=== PATIENT | female | born 1950 | race Caucasian/White ===

== ENCOUNTER → 2022-11-02 13:22 | Outpatient (CLI) | payer MEDICARE, MEDICAID, SELFPAY ==
--- NOTE | 2022-11-02 | DI.MRI.S_ITS ---
PROCEDURE: MR HEAD/BRAIN WO CON INDICATIONS: HEAD TRAUMA/HEADACHE TECHNIQUE: Non-contrast axial T1 spin echo, axial T2 fast spin echo, sagittal and axial FLAIR, coronal T2 fast spin echo, axial gradient echo, axial diffusion and ADC through the brain. COMPARISON: None. FINDINGS: Image quality: Excellent. CSF spaces: Ventricles appear symmetric in size and shape. Basal cisterns are patent. No extra-axial fluid collections. Brain: No intracranial bleeds or mass effects. There is cerebral volume loss for age. There are ltgp-hq-rvlzqdbb, age-appropriate periventricular and deep white matter chronic small vessel ischemic changes. Brainstem appears normal. Diffusion-weighted images show no acute ischemic insults. No chronic ischemic insults. Normal intravascular flow voids are present. Skull and face: Calvarial bone marrow is normal in signal. Orbits are normal. Sinuses: Sinuses and mastoids are clear. IMPRESSION: 1. Age-appropriate volume loss and nozt-pj-kadhrrbt age-appropriate small-vessel ischemic change. 2. No evidence acute intracranial process. Dictated by: Jason Holley M.D. on 11/02/2022 at 13:56 Approved by: Jason Holley M.D. on 11/02/2022 at 13:58
== END ==
PROVIDERS: PCP Internal Medicine; Referring Provider Psychiatry & Neurology Neurology; Visit Provider Psychiatry & Neurology Neurology
DX: G44.329 Chronic post-traumatic headache, not intractable (principal); F07.81 Postconcussional syndrome; G47.00 Insomnia, unspecified
CPT/HCPCS: 70551

== ENCOUNTER → 2022-12-14 08:02 | Outpatient (CLI) | payer MEDICARE, MEDICAID, SELFPAY ==
--- NOTE | 2022-12-14 | DI.ECHO.S_ITS ---
[place] [facility]---------+ [facility] +---------+ : : [address] : : : : [id number] : : : : Phone: [phone]+ Echocardiogram Report + + :Name: JAMAR SMITH Study Date: 12/14/2022 Height: 61 in : :[facility] ReadingLocation: Weight: 125 lb : : Gender: Female BSA: 1.5 m2 : :: 1950 Age: 71 yrs BP: 136/75 mmHg: :Reason For Study: SHORTNESS OF BREATH : :Ordering Physician: NAGA, : :REJI Performed By: Laila Hancock : :Referring: REJI LUGO : + + Interpretation Summary 1) Normal left ventricular thickness, size, wall motion, and systolic function (EF 60-65%). 2) Normal right ventricular size and function. 3) No significant valvular abnormalities. 4) No prior Echo available for comparison. Procedure: A two-dimensional transthoracic echocardiogram with color flow and Doppler was performed. The study quality was technically adequate. There is no prior echocardiogram noted for this patient. The patient was in sinus bradycardia with heart rates between 55-63 bpm during the exam. Left Ventricle: The left ventricle is normal in size and wall thickness. The ejection fraction is estimated to be 60-65%. Left ventricular systolic function appears normal without focal wall motion abnormalities. Diastolic parameters suggest a relaxation abnormality of the left ventricle, consistent with probable normal filling pressures. Right Ventricle: The right ventricle is normal in size and function. Atria: The left atrial size is normal. Right atrial size is normal. There is no Doppler evidence for an interatrial shunt. Mitral Valve: The mitral valve is normal in structure and function. There is mild mitral regurgitation. Aortic Valve: The aortic valve is trileaflet. The aortic valve opens well. There is no aortic valve stenosis. No aortic regurgitation is present. Tricuspid Valve: The tricuspid valve is normal in structure and function. There is trace tricuspid regurgitation. Pulmonary artery pressures cannot be estimated because of the lack of a measurable TR jet velocity. Pulmonic Valve: The pulmonic valve leaflets are thin and pliable; valve motion is normal. There is no pulmonic valvular regurgitation. Great Vessels: The aortic root is normal size. The dimensions of the ascending aorta are normal. The IVC is of normal diameter and collapses greater than 50% with a sniff. This suggests a low right atrial pressure of 3 mm Hg. Pericardium/ Pleura There is no pericardial effusion. There is no pleural effusion. MMode/2D Measurements & Calculations LVIDd: 3.8 cm LVOT diam: 1.9 cm LVIDs: 2.5 cm Ao root diam: 2.6 cm FS: 35.5 % asc Aorta Diam: 3.4 cm IVSd: 0.76 cm Ao Arch Diam (Prox Trans): 2.5 cm LVPWd: 0.79 cm LV hinojosa. diameter/BSA (cm/m^2): 2.5 LV sys. diameter/BSA (cm/m^2): 1.6 LA A2 area: 13.7 cm2 RA long axis: 4.3 cm LA A4 area: 13.1 cm2 RA area: 11.1 cm2 LA length (vol): 4.3 cm RA vol: 24.5 ml LA vol: 35.8 ml RA : 15.9 ml/m2 LA vol index: 23.1 ml/m2 IVC diam: 0.75 cm RVD1 (basal): 2.9 cm RVD2 (mid): 2.2 cm TAPSE: 2.3 cm Doppler Measurements & Calculations Ao V2 max: 126.6 cm/sec LVOT Max Nicholas: 103.4 cm/sec Ao V2 mean: 96.3 cm/sec LV V1 max P.3 mmHg Ao max P.4 mmHg LV V1 VTI: 23.3 cm Ao mean P.0 mmHg SHAHZAD(I,D): 2.3 cm2 Ao V2 VTI: 29.3 cm SHAHZAD(V,D): 2.4 cm2 sev ratio: 0.80 SHAHZAD indexed to BSA (cm^2/m^2): 1.5 MV E max nicholas: 60.3 cm/sec PA V2 max: 71.5 cm/sec MV A max nicholas: 63.4 cm/sec PA V2 mean: 51.0 cm/sec MV E/A: 0.95 PA mean P.1 mmHg Med Peak E' Nicholas: 4.6 cm/sec PA pr(Accel): 31.0 mmHg E/E' med: 13.1 Lat Peak E' Nicholas: 6.4 cm/sec E/E' lat: 9.4 E/e' average: 11.2 MV dec time: 0.25 sec SV(LVOT): 68.3 ml Reading Physician:04:46 PM
== END ==
PROVIDERS: PCP Internal Medicine; Referring Provider Internal Medicine Cardiovascular Disease; Visit Provider Internal Medicine Cardiovascular Disease
DX: R06.02 Shortness of breath (principal)
CPT/HCPCS: 93306

== ENCOUNTER → 2023-02-20 15:25 | Outpatient (CLI) | payer MEDICARE, MEDICAID, SELFPAY ==
--- NOTE | 2023-02-20 | DI.US.S_ITS ---
PROCEDURE: US PELVIC COMPLETE INDICATIONS: POSTMENOPAUSAL BLEEDING TECHNIQUE: Real-time scanning was performed of the pelvic organs, with image documentation. Additional endovaginal scanning was necessary due to incomplete visualization of the adnexal and endometrial structures by transabdominal scanning. COMPARISON: None. FINDINGS: Uterus: Uterus is anteverted and normal in size at 7.0 x 3.6 x 2.0 cm. The myometrium is heterogeneous. The endometrium measures 1.5 mm combined thickness. Of the level of the cervix is a hypoechoic mass measuring 6 x 4 x 3 mm without vascularity. Hypoechoic mass within the posterior uterine body measuring 7 x 7 x 5 mm, favored to represent a fibroid. Hypoechoic mass within the anterior right uterine fundus measuring 1.2 x 0.9 x 0.6 cm with vascularity. Ovaries: The ovaries are not seen. Other: No pathologic free abdominal or pelvic fluid. IMPRESSION: 1. Hypoechoic mass within the region of the cervix/lower uterine segment measuring 6 mm. Consider gynecologic exam for further evaluation. 2. Hypoechoic masses within the uterus, 1 of which demonstrates increased vascularity. These may represent fibroids. Recommend gynecology consult and follow-up ultrasound to assess stability. 3. The ovaries are not seen. We strive to produce accurate, complete, and clear reports of imaging services. To assist us in improving patient care, this report was composed using standard report templates and voice recognition software. Therefore, it may contain abnormal punctuation, insertions and/or omissions. Occasional wrong-word or sound-alike substitutions may occur. Though we review the report and make efforts to correct it, we do recommend that the report be read carefully in proper context to recognize any text inaccuracies. Dictated by: Jose Armando Holder M.D. on 02/20/2023 at 16:26 Approved by: Jose Armando Holder M.D. on 02/20/2023 at 16:32
== END ==
PROVIDERS: PCP Internal Medicine; Referring Provider Internal Medicine; Visit Provider Internal Medicine
DX: N95.0 Postmenopausal bleeding; N88.9 Noninflammatory disorder of cervix uteri, unspecified; N85.9 Noninflammatory disorder of uterus, unspecified
CPT/HCPCS: 76830; 76856

== ENCOUNTER → 2023-04-02 11:28 | Outpatient (CLI) | payer MEDICARE, MEDICAID, SELFPAY ==
--- NOTE | 2023-04-02 11:40 | DI.CT.S_ITS ---
PROCEDURE: CT ABDOMEN W CON INDICATIONS: Abdominal pain, primarily epigastric TECHNIQUE: After the administration of intravenous contrast, axial sections were acquired from the lung bases to the pubic symphysis. Coronal and sagittal reformats were performed. For radiation dose reduction, the following was used: automated exposure control, adjustment of mA and/or kV according to patient size. COMPARISON:None. FINDINGS: Lower thorax: The lung bases are clear. Heart size normal. Small hiatal hernia noted. Liver: The liver is diffusely decreased in attenuation without focal mass lesion. Biliary system: No calcified cholelithiasis or pericholecystic inflammation. No intra or extrahepatic bile duct dilatation. Pancreas: Unremarkable without mass or inflammation evident. Spleen: Normal in size and density. Adrenals: Normal morphology and density. Urinary system: Normal renal size and attenuation. No renal calculi, hydronephrosis, or solid mass present. Gastrointestinal system: The bowel is unremarkable without evidence of bowel obstruction or inflammation. The stomach appears unremarkable. Peritoneal spaces: No mesenteric or retroperitoneal adenopathy. No free air. No free fluid. Abdominal wall: Abdominal wall intact without evidence of ventral or inguinal hernias. Musculoskeletal: Normal bone mineralization. No acute fractures. IMPRESSION: 1. Small hiatal hernia and hepatic fatty infiltration without focal mass lesion Approved by: Pool Radford M.D. on 04/02/2023 at 17:54
[2023-04-02 12:13] LABS: Estimated Glomerular Filt Rate > 60 mL/min (>60)
== END ==
PROVIDERS: Specialist; PCP Internal Medicine; Referring Provider Obstetrics & Gynecology; Visit Provider Obstetrics & Gynecology
DX: K44.9 Diaphragmatic hernia without obstruction or gangrene (principal); N85.8 Other specified noninflammatory disorders of uterus; R10.9 Unspecified abdominal pain; R10.13 Epigastric pain; R14.0 Abdominal distension (gaseous); R19.5 Other fecal abnormalities
CPT/HCPCS: 36415; 74160; 82565; 99213

== ENCOUNTER 2023-04-12 06:31 | Day surgery (SDC) | payer MEDICARE, MEDICAID, SELFPAY ==
--- NOTE | 2023-04-12 | PATH_ITS ---
[facility] Accession Number: [id number] No. of containers..06 Tissue . 01 Material submitted: . PART A: gastrointestinal site - GASTRIC POLYP PART B: gastrointestinal site - ANTRUM BIOPSY PART C: duodenum - DUODENUM PART D: esophagus, E-G Junction - GE JUNCTION PART E: colon - SIGMOID COLON BIOPSY PART F: rectum - RECTAL BIOPSY . 01 Diagnosis: A-STOMACH, POLYP, BIOPSY: - OXYNTIC GASTRIC MUCOSA WITH SUBTLE HISTOLOGIC CHANGES SUGGESTIVE OF FUNDIC GLAND POLYP. - NO H. PYLORI LIKE ORGANISMS IDENTIFIED (ON THE H/E-STAINED SECTIONS). - NEGATIVE FOR GASTRITIS, INTESTINAL METAPLASIA, DYSPLASIA OR MALIGNANCY. --- B- STOMACH, ANTRUM, BIOPSY: - ANTRAL GASTRIC MUCOSA WITH MILD REACTIVE GASTROPATHY. - NO H. PYLORI LIKE ORGANISMS IDENTIFIED (BY THE H/E AND IMMUNOHISTOCHEMICAL STAINED SLIDE SECTIONS). - NO INTESTINAL METAPLASIA, DYSPLASIA OR MALIGNANCY IDENTIFIED. - SEE NOTE: --- C- DUODENUM, BIOPSY: - SMALL BOWEL MUCOSA WITH PRESERVED VILLOUS ARCHITECTURE, NEGATIVE FOR HISTOLOGIC EVIDENCE OF CELIAC DISEASE. - NEGATIVE FOR DYSPLASIA OR MALIGNANCY. --- D- DESIGNATED GE JUNCTION, BIOPSY: - OXYNTIC GASTRIC MUCOSA WITH UNREMARKABLE HISTOLOGY. - NO SQUAMOUS EPITHELIUM IS SEEN. - NO H. PYLORI LIKE ORGANISMS IDENTIFIED (ON THE H/E-STAINED SECTIONS). - NEGATIVE FOR GASTRITIS, INTESTINAL METAPLASIA, DYSPLASIA OR MALIGNANCY. --- E- COLON, SIGMOID, BIOPSY: - BENIGN COLONIC MUCOSA, WITH SUBTLE MILD FOCAL HYPERPLASTIC CHANGES, NEGATIVE FOR DYSPLASIA. --- F- COLON, RECTUM, BIOPSY: ONE FRAGMENT WITH TUBULAR ADENOMA AND TWO FRAGMENTS WITH HYPERPLASTIC CHANGES. --- NOTE FOR PART B: H. PYLORI IMMUNOHISTOCHEMICAL STAIN WAS PERFORMED ON PART B AND IS NEGATIVE. TECHNICAL NOTE: THE IMMUNOHISTOCHEMICAL STAINS REPORTED WERE PERFORMED AT [facility] ([address], [facility] [address]). THEY WERE DEVELOPED AND THEIR PERFORMANCE CHARACTERISTICS DETERMINED BY [employer] THEY HAVE NOT BEEN CLEARED OR APPROVED BY THE [employer]OD AND [employer]UG [employer], ALTHOUGH SUCH APPROVAL IS NOT REQUIRED FOR ANALYTE-SPECIFIC REAGENTS OF THIS TYPE. DARLENE 04/19/2023 1328 Local . 01 Electronically signed: . Tawfeq MD West, Pathologist NPI- [id number] . 01 Gross description: . Part A: GASTRIC POLYP: Received in formalin is 1 fragment(s) of segundo, soft tissue measuring 0.3 x 0.2 x 0.2 cm submitted entirely in 1 cassette(s) Part B: ANTRUM BIOPSY: Received in formalin are 2 fragment(s) of segundo, soft tissue measuring 0.3 x 0.2 x 0.2 cm to 0.4 x 0.2 x 0.2 cm submitted entirely in 1 cassette(s) Part C: DUODENUM: Received in formalin are 2 fragment(s) of segundo, soft tissue measuring 0.2 x 0.2 x 0.2 cm to 0.3 x 0.3 x 0.3 cm submitted entirely in 1 cassette(s) Part D: GE JUNCTION: Received in formalin is 1 fragment(s) of segundo, soft tissue measuring 0.3 x 0.3 x 0.3 cm submitted entirely in 1 cassette(s) Part E: SIGMOID COLON BIOPSY: Received in formalin is 1 fragment(s) of segundo, soft tissue measuring 0.2 x 0.2 x 0.2 cm submitted entirely in 1 cassette(s) Part F: RECTAL BIOPSY: Received in formalin are 3 fragment(s) of segundo, soft tissue measuring 0.1 x 0.1 x 0.1 cm to 0.2 x 0.2 x 0.2 cm submitted entirely in 1 cassette(s) /FABIO 04/16/2023 2224 Local . 01 Pathologist provided ICD-10: Z12.11 . 01 CPT . 127328, 460920, 501508, 100012, 766102, [id number], [id number] Specimen Comment: A courtesy copy of this report has been sent to [facility] Performed at: 01 [facility] [address] [place] [address] [address], [place], [place] [id number] MD Jitendra Mtz MD Phone: [phone]
[2023-04-12 07:12] VITALS: BP 159/93; PULSE 84; RESP 18; TEMP 36.4; O2SAT 99; BMI 23.4
[2023-04-12] MEDS: LACTATED RINGERS 1,000 ML 42 ML IV (07:30)
--- NOTE | 2023-04-12 08:02 | PM.PREOP ---
Pre-operative Note Interval Note History & Physical reviewed/Exam performed by Physician: Yes Changes to H&P: No
[2023-04-12 09:22] VITALS: BP 127/69; PULSE 62; RESP 14; TEMP 36.1; O2SAT 98
[2023-04-12 09:27] VITALS: BP 137/79; PULSE 65; RESP 20; O2SAT 100
[2023-04-12 09:32] VITALS: BP 149/84; PULSE 77; RESP 17; O2SAT 100
--- NOTE | 2023-04-12 09:32 | P.OP.EGD&C_ITS ---
Operative Date/Time/Diagnoses Date of procedure: 04/12/23 Time of procedure: 09:32 Pre-op diagnosis: Abdominal pain, colon cancer screening, weakness/fatigue Post-op diagnosis: same Procedure & Clinicians Study performed: EGD colonoscopy and biopsies Same procedure as scheduled: Yes Indications: Abdominal pain, screening for colon cancer, weakness fatigue Surgeon: Constance Watts Procedure Notes Procedure in detail: Patient was taken to the endoscopy suite and placed in a left lateral decubitus position. A time-out was performed. With the help of anesthesiologist conscious sedation was induced and monitored throughout the case. The bite block was placed. An EGD scope was introduced into the mouth and advanced into the esophagus without difficulty. The esophagus appeared normal and the stomach was entered. There were some small gastric polyps which were biopsied and photographed. The gastric antrum had mild irritation and was photographed and biopsied. Entering passed the pylorus into the duodenum was very difficult whether due to anatomy or spasm it took several more attempts and minutes than usual but the duodenum was eventually intubated photographed and biopsied. The scope was then withdrawn and retroflexed photographs of the very small hiatal hernia were obtained. The scope was then withdrawn into the esophagus and biopsies were taken of the GE junction. The GE junction was 38 cm at the teeth. Next she was repositioned for colonoscopy. A digital rectal exam was performed and there were no masses or strictures. The colonoscope was introduced into the anal canal and advanced through to the cecum. The the sigmoid colon was extremely tortuous and there was 1 particular turn just before entering the descending colon that was very difficult to traverse. Again several additional minutes were required in passing this area whether because of anatomy or spasm it is unclear. Eventually I did pass by this and the remainder of the colonoscopy was not difficult a small amount of abdominal pressure was used to enter the cecum. A photograph of the appendiceal orifice was obtained. The bowel prep was good [place] bowel prep score of 2. The scope was then withdrawn for a total of 15 minutes including biopsies. There was a small polyp in the sigmoid colon which was biopsied with the forceps. Additionally there were 2 larger but still small rectal polyps that were biopsied and sent for pathology (there were a few other very small rectal polyps that were not biopsied). The scope was then retroflexed and a photograph of the internal hemorrhoidal piles was obtained. Findings: hiatal hernia and polyp Specimen(s): other (1. Gastric polyp 2. Antrum biopsy 3. Duodenal biopsy 4. GE junction 5. Sigmoid colon polyp small 6. Rectal polyps x2 both small) Complications: none Post-procedure Plan for aftercare: Colonoscopy in 7-10 years depending on pathology report. Upper GI pathology pending but no major pathology grossly identified. I do recommend a fiber supplement.
[2023-04-12 09:45] VITALS: BP 161/91; PULSE 68; RESP 15; TEMP 36.2; O2SAT 100
== END 2023-04-12 10:00 | disposition home or self-care (01) ==
PROVIDERS: PCP Internal Medicine; Referring Provider Surgery; Visit Provider Surgery
PROC: 0DJ08ZZ Inspection of Upper Intestinal Tract, Via Natural or Artificial Opening Endoscopic (ICD-10-PCS; CPT 43235; principal; 2023-04-12 07:45)
PROC: 0DJD8ZZ Inspection of Lower Intestinal Tract, Via Natural or Artificial Opening Endoscopic (ICD-10-PCS; CPT 45378; 2023-04-12 07:45)
DX: Z12.11 Encounter for screening for malignant neoplasm of colon (principal); R10.10 Upper abdominal pain, unspecified; R53.1 Weakness; R53.83 Other fatigue; K44.9 Diaphragmatic hernia without obstruction or gangrene; K31.9 Disease of stomach and duodenum, unspecified; D12.8 Benign neoplasm of rectum
CPT/HCPCS: 45380; 43239; J2704

== ENCOUNTER → 2023-04-26 09:12 | Outpatient (CLI) | payer MEDICARE, MEDICAID, SELFPAY ==
--- NOTE | 2023-04-26 09:13 | DI.US.S_ITS ---
PROCEDURE: US ABDOMEN LIMITED INDICATIONS: RIGHT UPPER QUADRANT PAIN. TECHNIQUE: Real-time focused scanning was performed of the abdomen, with image documentation. COMPARISON: [facility], CT, CT ABDOMEN W CON, 04/02/2023, 12:32. FINDINGS: 17 centimeters. Increased echogenicity. Gallbladder within normal limits, although the fundus is not well seen. CBD is not well seen due to bowel gas. Partially visualized pancreas within normal limits. IMPRESSION: No acute sonographic abnormality, although sonographic windows are obscured by bowel gas. CBD is not well seen. No focal gallbladder tenderness. Increased hepatic echotexture is nonspecific, most commonly due to steatosis. Dictated by: Bin Guerra M.D. on 04/26/2023 at 10:56 Approved by: Bin Guerra M.D. on 04/26/2023 at 10:58
== END ==
LOC: US 09:13
PROVIDERS: PCP Internal Medicine; Referring Provider Surgery; Visit Provider Surgery
DX: R10.11 Right upper quadrant pain (principal)
CPT/HCPCS: 76705

== ENCOUNTER → 2023-05-15 | Outpatient (CLI) | payer MEDICARE, MEDICAID, SELFPAY ==
--- NOTE | 2023-05-15 11:55 | DI.DEXA.S_ITS ---
Bone Density Report Name: JAMAR SMITH Age: 72 Sex: Female Ethnicity: White Date of : 1950 Indication: postmenopausal; screening for osteoporosis; Referring Provider: TATYANA VASQUEZ Study: Bone densitometry was performed. Exam Date: May 15, 2023 Accession number: [id number] Bone Density: Region BMD T-score Z-score Classification AP Spine(L1-L4) 0.865 -1.7 0.6 Osteopenia Femoral Neck (Left) 0.725 -1.1 0.8 Osteopenia Total Hip (Left) 0.893 -0.4 1.2 Normal Femoral Neck (Right) 0.781 -0.6 1.3 Normal Total Hip (Right) 0.930 -0.1 1.5 Normal Total Hip Mean 0.912 -0.3 1.4 Normal World Health Organization criteria for BMD impression classify patients as: Normal (T-score at or above -1.0), Osteopenia (T-score between -1.0 and -2.5), or Osteoporosis (T-score at or below -2.5). 10-year Fracture Risk(1): Major Osteoporotic Fracture 9.3% Hip Fracture 1.3% Reported Risk Factors: [place] (), Neck BMD=0.725, BMI=23.6 (1) FRAX(R) Version 3.08. Fracture probability calculated for an untreated patient. Fracture probability may be lower if the patient has received treatment. Impression: The patient has low bone mass, based on the Total Spine T-score. The patient has an estimated ten-year risk of hip fracture of 1.3% and an estimated ten-year risk of major fracture of 9.3%, based on the WHO FRAX algorithm. Discussion: BONE DENSITY IS LOW AT ONE OR MORE SKELETAL SITES. This patient's lowest T-score is low at one or more skeletal sites. It meets the World Health Organization's (WHO) criteria for ?low bone mass? (T-score between -1.0 and -2.5). The patient's 10-year risk of fracture as calculated by FRAX is less than the threshold where pharmacological therapy is recommended by the National Osteoporosis Foundation (NOF). However, all treatment decisions require clinical judgment and consideration of individual patient factors, including patient preferences, comorbidities, previous drug use, risk factors not captured in the FRAX model (e.g., frailty, falls, vitamin D deficiency, increased bone turnover, interval significant decline in bone density) and possible under or overestimation of fracture risk by FRAX. The patient should follow a healthful lifestyle (good nutrition with adequate calcium and vitamin D, and appropriate weight-bearing exercise). Follow-Up: Consider repeating this study in 2 to 3 years to reassess this patient's status, or sooner if there is some new clinical indication. Reported by: DREA CLAROS M.D. on 05/15/2023 9:32:00 AM.
== END ==
LOC: RAD 11:42
PROVIDERS: PCP Internal Medicine; Referring Provider Internal Medicine; Visit Provider Internal Medicine
DX: M85.88 Other specified disorders of bone density and structure, other site (principal); Z13.820 Encounter for screening for osteoporosis; Z78.0 Asymptomatic menopausal state
CPT/HCPCS: 77080

== ENCOUNTER → 2023-05-25 13:54 | Outpatient (CLI) | payer MEDICARE, MEDICAID, SELFPAY ==
--- NOTE | 2023-05-25 | DI.MRI.S_ITS ---
PROCEDURE: MR HEAD/BRAIN WO CON INDICATIONS: Chronic post-traumatic headache, not intractable TECHNIQUE: Non-contrast axial T1 spin echo, axial T2 fast spin echo, sagittal and axial FLAIR, coronal T2 fast spin echo, axial gradient echo, axial diffusion and ADC through the brain. COMPARISON: [facility], MR, MR HEAD/BRAIN WO CON, 11/02/2022, 13:31. FINDINGS: Image quality: Excellent. CSF spaces: Ventricles appear symmetric in size and shape. Basal cisterns are patent. No extra-axial fluid collections. Brain: No intracranial bleeds or mass effects. There is cerebral volume loss for age. There are periventricular and deep white matter chronic small vessel ischemic changes. Brainstem appears normal. Diffusion-weighted images show no acute ischemic insults. No chronic ischemic insults. Normal intravascular flow voids are present. Skull and face: Calvarial bone marrow is normal in signal. Orbits are normal. Sinuses: Mild diffuse paranasal sinus mucosal thickening. Small bilateral mastoid effusions. IMPRESSION: 1. No acute intracranial abnormalities. 2. Age-related global volume loss and chronic microvascular ischemic changes. Dictated by: Jose Armando Holder M.D. on 05/27/2023 at 9:43 Approved by: Jose Armando Holder M.D. on 05/27/2023 at 9:45
== END ==
PROVIDERS: PCP Internal Medicine; Referring Provider Psychiatry & Neurology Neurology; Visit Provider Psychiatry & Neurology Neurology
DX: F07.81 Postconcussional syndrome (principal); G47.00 Insomnia, unspecified; G44.329 Chronic post-traumatic headache, not intractable; R26.89 Other abnormalities of gait and mobility
CPT/HCPCS: 70551

== ENCOUNTER → 2023-06-01 07:35 | Outpatient (CLI) | payer MEDICARE, MEDICAID, SELFPAY ==
--- NOTE | 2023-06-01 07:53 | DI.MRI.S_ITS ---
PROCEDURE: MR LUMBAR SPINE WO CON INDICATIONS: LEG WEAKNESS,BILATERAL TECHNIQUE: Noncontrast sagittal T1 spin echo and T2 fast echo, sagittal STIR, and T2 fast spin echo through the lumbar spine. In cases with scoliosis, additional coronal T2 fast spin echo may be performed. COMPARISON: None. FINDINGS: Image quality: Excellent. Alignment and Curvature: Trace anterolisthesis of L3 on L4. Bone Marrow: Marrow is of normal overall signal. No acute vertebral body compression fractures. Spinal Cord: Conus medullaris terminates at the L1-L2 level. Visualized cord demonstrates normal signal and size. Paraspinous Soft Tissues: No paravertebral masses. T12-L1: Normal appearance. L1-L2: Mild disc bulge. Early facet hypertrophy. No canal stenosis or foraminal stenosis. L2-L3: Mild disc bulge. Mild facet hypertrophy. No canal stenosis or foraminal stenosis. L3-L4: Disc bulge. Facet hypertrophy. Mild canal stenosis. No significant foraminal stenosis. L4-L5: Disc bulge. Facet hypertrophy. Epfq-di-vpexuxgk canal stenosis. No significant foraminal stenosis. L5-S1: Minimal disc bulge. Facet hypertrophy. No canal stenosis or foraminal stenosis. IMPRESSION: 1. Multilevel underlying facet arthropathy. 2. Canal stenosis is mild at L3-L4 and acho-zt-fhavphku at L4-L5. Dictated by: Jason Holley M.D. on 06/03/2023 at 10:07 Approved by: Jason Holley M.D. on 06/03/2023 at 11:16
== END ==
PROVIDERS: PCP Internal Medicine; Referring Provider Physical Medicine & Rehabilitation Pain Medicine; Visit Provider Physical Medicine & Rehabilitation Pain Medicine
DX: M47.816 Spondylosis without myelopathy or radiculopathy, lumbar region (principal); M47.817 Spondylosis without myelopathy or radiculopathy, lumbosacral region; M48.061 Spinal stenosis, lumbar region without neurogenic claudication; R29.898 Other symptoms and signs involving the musculoskeletal system
CPT/HCPCS: 72148

== ENCOUNTER → 2024-07-28 14:25 | Outpatient (CLI) | payer MEDICARE, MEDICAID, SELFPAY ==
--- NOTE | 2024-07-28 14:37 | DI.US.S_ITS ---
PROCEDURE: US PERIPH VENOUS LOW EXTREM BI INDICATIONS: EVAL FOR DVT TECHNIQUE: Real-time imaging, as well as color and pulse Doppler interrogation, were performed of the deep veins of both legs from the inguinal ligament to the popliteal fossa, with documentation of the visualized calf veins. COMPARISON: None. FINDINGS: Right: The common femoral, femoral, popliteal, and the visualized calf veins are normally compressible, and free of intraluminal thrombus. Color and pulse Doppler demonstrate normal phasic intravascular flow. There is normal augmentation response to distal compression maneuver. Left: The common femoral, femoral, popliteal, and the visualized calf veins are normally compressible, and free of intraluminal thrombus. Color and pulse Doppler demonstrate normal phasic intravascular flow. There is normal augmentation response to distal compression maneuver. IMPRESSION: No findings of deep venous thrombosis in either lower extremity. Dictated by: Ba Elias M.D. on 07/30/2024 at 10:24 Approved by: Ba Elias M.D. on 07/30/2024 at 10:24
== END ==
PROVIDERS: PCP Internal Medicine; Referring Provider Internal Medicine; Visit Provider Internal Medicine
DX: M79.89 Other specified soft tissue disorders (principal); E87.6 Hypokalemia; E03.9 Hypothyroidism, unspecified
CPT/HCPCS: 36415; 80048; 83735; 84443; 93970

== ENCOUNTER → 2024-07-28 14:30 | Outpatient (CLI) | payer MEDICARE, MEDICAID, SELFPAY ==
[2024-07-28 16:30] LABS: BUN Creatinine Ratio 31.4 (6-22); Blood Urea Nitrogen 16 mg/dL (7-17); Calcium 9.4 mg/dL (8.4-10.2); Carbon Dioxide 33 mmol/L (22-32); Chloride 100 mmol/L (98-107); Estimated Glomerular Filt Rate > 60 mL/min (>60); Glucose 95 mg/dL (80-110); HEMOLYSIS < 15 (0-50); Magnesium 1.9 mg/dL (1.6-2.3); Potassium 3.4 mmol/L (3.4-5.1); Sodium 136 mmol/L (137-145)
[2024-07-28 17:08] LABS: TSH w/ Reflex to FT4 1.26 uIU/mL (0.47-4.68)
== END ==
PROVIDERS: PCP Internal Medicine; Referring Provider Internal Medicine; Visit Provider Internal Medicine
DX: E87.6 Hypokalemia (principal); E03.9 Hypothyroidism, unspecified
CPT/HCPCS: 36415; 80048; 83735; 84443

== ENCOUNTER 2024-09-10 08:50 | Emergency (ER) | payer MEDICARE, MEDICAID, SELFPAY ==
[2024-09-10] VITALS (7 sets, daily range): BP systolic 134–157; BP diastolic 67–78; PULSE 63–81; RESP 16–30; TEMP 36.7; O2SAT 97–99; BMI 17.7
--- NOTE | 2024-09-10 09:22 | ED.CHESTPAIN ---
HPI - Chest Pain General Chief Complaint: Chest Pain Stated Complaint: Not feeling well, anxious Time Seen by Provider: 09/10/24 09:06 Source: patient, EMS, RN notes reviewed and old records reviewed Mode of arrival: EMS Limitations: no limitations History of Present Illness HPI narrative: 73-year-old female history of hypertension, neuromuscular disorder who presents with complaint of not feeling well and feeling anxious. Patient notes she had a little bit of chest pressure last night none today. Patient states checked her blood pressure was elevated so she took her lisinopril at 2:30 a.m. this morning which isn't her normal time and then took an additional hydrochlorothiazide about 5 or 6:00 a.m.. Patient states no additional chest pressure or pain since. No fevers or chills, no new cold cough or congestion. [place] little short of breath states her lungs feel good and feels somewhat like her normal. Patient denies any nausea or vomiting. No new GI or urinary symptoms. Patient has chronic weakness particularly more in her right side but has a neuromuscular disorder which causes some generalized weakness and uses a wheelchair. Patient has noted some slow progress over time with slowly progressive weakness of cough and voice changes. Patient feels she is currently at her baseline was seeing Neurology through [facility] regularly has been considering following up with for potential trials. Patient states she was on medication for hypertension. Denies any drug allergies. No tobacco, occasional alcohol, no recreational drugs. No known cardiac disease or prior strokes. She does not take any anticoagulants regularly. Dr. Sheryl harper as her primary care physician. Dr. Lugo is her medicare biller. Related Data Home Medications Medication Instructions Recorded Confirmed cholecalciferol (vitamin D3) 50 50 mcg PO DAILY 08/08/20 04/12/23 mcg (2,000 unit) capsule levothyroxine 50 mcg tablet 50 mcg PO DAILY 04/12/23 04/12/23 gabapentin 100 mg capsule 100 mg PO 3XD 06/03/24 06/03/24 ipratropium 20 mcg-albuterol 100 1 puff inhalation 4XD 06/03/24 06/03/24 mcg/actuation mist for inhalation (Combivent Respimat) ipratropium 20 mcg-albuterol 100 inhalation Asthma 06/03/24 06/03/24 mcg/actuation mist for inhalation (Combivent Respimat) lisinopril 5 mg tablet 5 mg PO DAILY 06/03/24 06/03/24 lorazepam 0.5 mg tablet 0.5 mg PO ONCE PM PRN anxiety 06/03/24 06/03/24 meloxicam 7.5 mg tablet 7.5 mg PO DAILY 06/03/24 06/03/24 naltrexone 50 mg tablet 50 mg PO DAILY 06/03/24 06/03/24 ondansetron 4 mg disintegrating 4 mg PO DAILY PRN 06/03/24 06/03/24 tablet Previous Rx's Medication Instructions Recorded amoxicillin 875 mg-potassium 1 tab PO Q12H #14 tabs 06/03/24 clavulanate 125 mg tablet cetirizine 10 mg capsule (Zyrtec) 10 mg PO DAILY PRN allergy 06/04/24 symptoms #30 caps erythromycin 5 mg/gram (0.5 %) eye 1 cm ophthalmic (eye) .COMPLEX 06/04/24 ointment #3.5 grams hydroxyzine pamoate 25 mg capsule 25 mg PO QID PRN allergies #30 caps 06/04/24 (Vistaril) Allergies Allergy/AdvReac Type Severity Reaction Status Date / Time COVID-19 (SARS-CoV-2) Allergy Intermediate Rash Verified 09/10/24 09:52 vaccine, kaitlin hydrocortisone Allergy Mild Rash Verified 09/10/24 09:52 [From Cortizone-10] codeine [CODEINE] Allergy Unknown Verified 09/10/24 09:52 Sulfa (Sulfonamide Allergy Unknown Verified 09/10/24 09:52 Antibiotics) [SULFA (SULFONAMIDE ANTIBIOTICS)] Review of Systems Review of Systems ROS Unobtainable: All systems reviewed & are unremarkable except as noted in HPI and below Patient History Social History (System 09/10/24 @ 09:52 by Tamy Contreras) household members: none Smoking Status: Never smoker alcohol intake: current Exam Narrative Exam Narrative: GENERAL: Alert and oriented x three, female in mild distress HEENT: Head normocephalic, atraumatic, EOMI, pupils reactive, face symmetric, moist mucous membranes NECK: Supple, full range of motion CARDIOVASCULAR: Regular rate and rhythm without murmurs, rubs or gallops. No edema bilateral lower extremities, no JVD. RESPIRATORY: Breath sounds equal bilaterally, no wheezes rales or rhonchi. No tachypnea or accessory muscle use. ABDOMEN: Soft, nontender. Normoactive bowel sounds all 4 quadrants. No guarding or rebound, rigidity, no mass : No CVA tenderness EXTREMITIES: Patient has significant weakness bilateral lower extremities right greater than left. Does have movement bilateral upper extremities seems to favor her right upper extremity but can use both. No clubbing or edema appreciated. Neurovascularly intact NEUROLOGICAL: Cranial nerves II through XII grossly intact. Moving all extremities SKIN: Warm, dry, no petechiae, no rashes or lesions. Initial Vital Signs Initial Vital Signs: Vital Signs Temperature 98.1 F 09/10/24 09:28 Pulse Rate 80 09/10/24 09:28 Respiratory Rate 16 09/10/24 09:28 Blood Pressure 134/75 09/10/24 09:28 Pulse Oximetry 98 09/10/24 09:28 Oxygen Delivery Method Room Air 09/10/24 09:28 Course Orders Ordered: Discontinued Medications Aspirin (Aspirin 81 Mg Chew Tab) 324 mg PO NOW ONE Stop: 09/10/24 09:27 Last Admin: 09/10/24 09:28 Dose: Not Given Documented By: NAKIA Vital Signs Vital signs: Vital Signs - 8 hr 09/10/24 09:28 09/10/24 10:37 Temperature 98.1 F Pulse Rate 80 72 Respiratory Rate 16 30 H Blood Pressure 134/75 139/72 Pulse Oximetry 98 97 Oxygen Delivery Method Room Air Room Air MDM - Chest Pain Lab Data 09/10/24 08:45 09/10/24 08:45 Labs: Lab Results 09/10/24 09/10/24 Range/Units 08:45 10:44 WBC 4.4 L (4.5-11.0) X10^3/uL RBC 5.23 H (4.0-5.2) X10^6/uL Hgb 15.6 (12.0-16.0) g/dL Hct 47.6 H (36-46) % MCV 90.9 (80-100) fL MCH 29.8 (26-34) PG MCHC 32.8 (30-36) % RDW 14.5 (11.6-14.8) % Plt Count 245 (150-400) X10^3/uL Neut % (Auto) 54.3 (50-75) % Lymph % (Auto) 36.6 (25-40) % [place] % (Auto) 6.7 (3-14) % Eos % (Auto) 1.5 L (2-4) % Baso % (Auto) 0.9 (0-2) % Neut # (Auto) 2400 (8202-6301) /uL Lymph # (Auto) 1600 (3723-0420) /uL [place] # (Auto) 300 (0-900) /uL Eos # (Auto) 100 (0-450) /uL Baso # (Auto) 0 (0-100) /uL Sodium 140 (137-145) mmol/L Potassium 3.8 (3.4-5.1) mmol/L Chloride 100 (98-107) mmol/L Carbon Dioxide 34 H (22-32) mmol/L BUN 18 H (7-17) mg/dL Creatinine 0.39 L (0.52-1.04) mg/dL Estimated GFR > 60 (>60) mL/min BUN/Creatinine Ratio 46.2 H (6-22) Glucose 139 H (80-110) mg/dL Calcium 10.0 (8.4-10.2) mg/dL Total Bilirubin 0.7 (0.2-1.3) mg/dL AST 38 H (14-36) IU/L ALT 30 (<35) IU/L Alkaline Phosphatase 47 (38-126) U/L Total Creatine Kinase 84 (30-135) U/L Troponin I < 0.012 < 0.012 (0.01-0.034) ng/mL NT-Pro-B Natriuret Pep 84 (<125) pg/mL Total Protein 7.9 (6.3-8.2) g/dL Albumin 5.0 (3.5-5.0) g/dL Globulin 2.9 (1.7-4.1) g/dL Albumin/Globulin Ratio 1.7 (1.0-2.8) Lipase 70 (23-300) U/L ECG Data Attestation: I personally reviewed and interpreted this ECG as follows: Prior ECG tracings: not available for review Interpretation: Sinus rhythm rate of 65 OR 158 QRS is 60 QTC of 411. No acute ST elevation nonspecific change. Priors comparison. Repeat EKG shows sinus rhythm rate of 68 rate of 150 QRS is 60 QTC of 427. No acute ST changes appreciated appears similar to prior. MDM Narrative Medical decision making narrative: 73-year-old female describes little bit of chest pressure last night has not been persistent was concerned as her blood pressure was elevated did take her lisinopril at 2:00 a.m. this morning as well as hydrochlorothiazide at about 5 or 6:00 a.m. she denies any other infectious symptoms no cough cold symptoms. States she was had cardiac evaluations in the past and has upcoming follow up with Cardiology but states no known cardiac history no prior stents or interventions. Labs white count of 4.4 hemoglobin 15.6 platelets of 245. Chemistries show CO2 of 34 consistent with prior from June electrolytes otherwise appropriate BUN 18 creatinine 0.39 glucose is 139 calcium is 10, troponin is less than 0.012 BNP is 84. Repeat troponin is less than 0.012 EKG sinus rhythm rate of 65 OR 158 QRS is 60 QTC of 411. No acute ST changes. Repeat EKG shows no acute or dynamic changes. Chest x-ray shows no acute change Patient appears appropriate for discharge home has not been persistently hypertensive here. Plan for discharge back to her facility patient uses a wheelchair at baseline so we will likely require BLS transport back. Discharge Plan Departure Patient Disposition: Home Clinical Impression: Atypical chest pain Instructions: DI for Atypical Chest Pain Activity Restrictions/Additional Instructions: Follow up with Dr. Lugo for recheck. Continue your home medications as prescribed. I would recommend an aspirin 81 mg daily if you did not take 1 currently. Please return for fevers, new chest pain or shortness of breath, lightheadedness or passing out, new swelling in your extremities, any persistent vomiting. Prescriptions: No Action Combivent Respimat 20-100 mcg/actuation mist inhalation lorazepam 0.5 mg tablet 0.5 mg PO ONCE PM PRN (Reason: anxiety) lisinopril 5 mg tablet 5 mg PO DAILY gabapentin 100 mg capsule 100 mg PO 3XD naltrexone 50 mg tablet 50 mg PO DAILY ondansetron 4 mg tablet,disintegrating 4 mg PO DAILY PRN meloxicam 7.5 mg tablet 7.5 mg PO DAILY Combivent Respimat 20-100 mcg/actuation mist 1 puff inhalation 4XD amoxicillin-pot clavulanate 875-125 mg tablet 1 tab PO Q12H Qty: 14 0RF hydroxyzine pamoate [Vistaril] 25 mg capsule 25 mg PO QID PRN (Reason: allergies) Qty: 30 0RF cholecalciferol (vitamin D3) 50 mcg (2,000 unit) capsule 50 mcg PO DAILY Zyrtec 10 mg capsule 10 mg PO DAILY PRN (Reason: allergy symptoms) Qty: 30 0RF erythromycin 5 mg/gram (0.5 %) ointment 1 cm ophthalmic (eye) .COMPLEX Qty: 3.5 0RF Rx Instructions: 1 cm into the affected eye(s) up to 6 times a day; levothyroxine 50 mcg tablet 50 mcg PO DAILY Referrals: Sheryl Harper MD [Primary Care Provider] - Stand Alone Forms: Patient Portal/API/Survey
--- NOTE | 2024-09-10 09:26 | DI.RAD.S_ITS ---
PROCEDURE: XR CHEST 1V INDICATIONS: chest pain/htn TECHNIQUE: One view of the chest was acquired. COMPARISON: None. FINDINGS: Surgical changes and devices: None. Lungs and pleura: Lungs are clear. No pleural effusions or pneumothorax. Mediastinum: Mediastinal contours appear normal. Heart size is normal. Bones and chest wall: No suspicious bony lesions. Overlying soft tissues appear unremarkable. IMPRESSION: No acute pulmonary process. Dictated by: Shalini Kwok M.D. on 09/10/2024 at 9:56 Approved by: Shalini Kwok M.D. on 09/10/2024 at 9:56
[2024-09-10 09:38] LABS: Add Manual Diff / Slide Review NO; Basophils Absolute Auto 0 /uL (0-100); Basophils Percent Auto 0.9 % (0-2); Eosinophils Absolute Auto 100 /uL (0-450); Eosinophils Percent Auto 1.5 % (2-4); Hematocrit 47.6 % (36-46); Hemoglobin 15.6 g/dL (12.0-16.0); Lymphocytes Absolute Auto 1600 /uL (1100-4500); Lymphocytes Percent Auto 36.6 % (25-40); Mean Corpuscular HGB Conc 32.8 % (30-36); Mean Corpuscular Hemoglobin 29.8 PG (26-34); Mean Corpuscular Volume 90.9 fL (80-100); Monocytes Absolute Auto 300 /uL (0-900); Monocytes Percent Auto 6.7 % (3-14); Neutrophils Absolute Auto 2400 /uL (1500-7000); Neutrophils Percent Auto 54.3 % (50-75); Platelet Count 245 X10^3/uL (150-400); Red Blood Cell Count 5.23 X10^6/uL (4.0-5.2); Red Cell Distribution Width 14.5 % (11.6-14.8); White Blood Cell Count 4.4 X10^3/uL (4.5-11.0)
[2024-09-10 09:39] LABS: Alanine Aminotransferase 30 IU/L (<35); Albumin Globulin Ratio 1.7 (1.0-2.8); Alkaline Phosphatase 47 U/L (38-126); Aspartate Aminotransferase 38 IU/L (14-36); BUN Creatinine Ratio 46.2 (6-22); Bilirubin Total 0.7 mg/dL (0.2-1.3); Blood Urea Nitrogen 18 mg/dL (7-17); Carbon Dioxide 34 mmol/L (22-32); Chloride 100 mmol/L (98-107); Creatine Kinase 84 U/L (30-135); Estimated Glomerular Filt Rate > 60 mL/min (>60); Globulin 2.9 g/dL (1.7-4.1); Glucose 139 mg/dL (80-110); HEMOLYSIS 16 (0-50); Lipase 70 U/L (23-300); Potassium 3.8 mmol/L (3.4-5.1); Sodium 140 mmol/L (137-145); Total Protein 7.9 g/dL (6.3-8.2)
[2024-09-10 09:51] LABS: NT-proBNP (BNP-Adult 18+) 84 pg/mL (<125); Troponin I < 0.012 ng/mL (0.01-0.034)
--- NOTE | 2024-09-10 10:03 | EKG_ITS ---
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
--- NOTE | 2024-09-10 11:02 | EKG_ITS ---
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
[2024-09-10 11:24] LABS: Troponin I < 0.012 ng/mL (0.01-0.034)
== END 2024-09-10 14:21 | disposition home or self-care (01) ==
PROVIDERS: Emergency Provider Emergency Medicine; PCP Internal Medicine
DX: R07.89 Other chest pain (principal); F41.9 Anxiety disorder, unspecified; I10 Essential (primary) hypertension; R29.90 Unspecified symptoms and signs involving the nervous system
CPT/HCPCS: 71045; 80053; 82550; 83690; 83880; 84484; 85025; 93005; 93010; 99283; 99285

== ENCOUNTER → 2024-11-19 08:46 | Outpatient (CLI) | payer MEDICARE, MEDICAID, SELFPAY ==
[2024-11-19 10:14] LABS: Alanine Aminotransferase 24 IU/L (<35); Albumin 4.3 g/dL (3.5-5.0); Alkaline Phosphatase 44 U/L (38-126); Aspartate Aminotransferase 29 IU/L (14-36); BUN Creatinine Ratio 58.6 (6-22); Bilirubin Total 0.6 mg/dL (0.2-1.3); Blood Urea Nitrogen 17 mg/dL (7-17); Calcium 9.4 mg/dL (8.4-10.2); Carbon Dioxide 38 mmol/L (22-32); Chloride 98 mmol/L (98-107); Cholesterol 226 mg/dL (140-199); Estimated Glomerular Filt Rate > 60 mL/min (>60); Globulin 2.2 g/dL (1.7-4.1); Glucose 97 mg/dL (70-99); HDL Cholesterol 95 mg/dL (40-60); HEMOLYSIS < 15 (0-50); LDL Cholesterol Calculated 112 mg/dL (<100); Potassium 3.8 mmol/L (3.4-5.1); Sodium 140 mmol/L (137-145); Total Protein 6.5 g/dL (6.3-8.2); Triglycerides 96 mg/dL (35-150)
[2024-11-19 10:25] LABS: LDL Cholesterol Direct 91 mg/dL (<100)
[2024-11-19 10:50] LABS: TSH w/ Reflex to FT4 1.39 uIU/mL (0.47-4.68)
== END ==
LOC: LAB 08:48
PROVIDERS: PCP Internal Medicine
DX: E78.2 Mixed hyperlipidemia (principal); E03.9 Hypothyroidism, unspecified
CPT/HCPCS: 36415; 80053; 80061; 83721; 84443

== ENCOUNTER 2025-01-04 14:20 | Inpatient (IN) | payer MEDICARE, MEDICAID, SELFPAY ==
[2025-01-04] VITALS (19 sets, daily range): BP systolic 103–145; BP diastolic 60–92; PULSE 67–93; RESP 10–44; TEMP 32–36.4; O2SAT 86–100
--- NOTE | 2025-01-04 14:27 | DI.RAD.S_ITS ---
PROCEDURE: XR CHEST 1V INDICATIONS: chest pain TECHNIQUE: One view of the chest was acquired. COMPARISON: [facility], , CHEST 2 VIEW, 07/27/2016, 17:09. FINDINGS: Patient is rotated. Surgical changes and devices: None. Lungs and pleura: Lungs are clear. No pleural effusions or pneumothorax. Mediastinum: Mediastinal contours appear normal. Heart size is normal. Bones and chest wall: No suspicious bony lesions. Overlying soft tissues appear unremarkable. IMPRESSION: No acute cardiopulmonary abnormality is seen. Dictated by: Ba Elias M.D. on 01/04/2025 at 15:14 Approved by: Ba Elias M.D. on 01/04/2025 at 15:14
--- NOTE | 2025-01-04 14:32 | ED.SOB ---
HPI - SOB/Dyspnea <Skip López MD - Last Filed: 01/05/25 10:42> General Chief Complaint: Shortness of Breath/Dyspnea Stated Complaint: Congestive heart failure exacerbation Time Seen by Provider: 01/04/25 14:21 History of Present Illness HPI Narrative: Patient brought in by ambulance from [facility]. [facility] across the street. Patient is wheelchair-bound. Complaints of body wide swelling. Has history of COPD but is not on home oxygen. Patient 98% room air by EMS. Improved with 2 L nasal cannula. Patient sees Dr. Lugo, cardiology services for likely development of CHF. Patient is not on any diuretics. Also complains of generalized abdominal discomfort, patient states she feels constipated. He has not had a bowel movement in a while. Denies any chest pain. Patient and gout. Pants shoes and socks removed. Patient does have history of ALS Related Data Home Medications ?Medication ?Instructions ?Recorded ?Confirmed cholecalciferol (vitamin D3) 50 50 mcg PO DAILY 08/08/20 04/12/23 mcg (2,000 unit) capsule levothyroxine 50 mcg tablet 50 mcg PO DAILY 04/12/23 04/12/23 gabapentin 100 mg capsule 100 mg PO 3XD 06/03/24 06/03/24 ipratropium 20 mcg-albuterol 100 1 puff inhalation 4XD 06/03/24 06/03/24 mcg/actuation mist for inhalation (Combivent Respimat) ipratropium 20 mcg-albuterol 100 inhalation Asthma 06/03/24 06/03/24 mcg/actuation mist for inhalation (Combivent Respimat) lisinopril 5 mg tablet 5 mg PO DAILY 06/03/24 06/03/24 lorazepam 0.5 mg tablet 0.5 mg PO ONCE PM PRN anxiety 06/03/24 06/03/24 meloxicam 7.5 mg tablet 7.5 mg PO DAILY 06/03/24 06/03/24 naltrexone 50 mg tablet 50 mg PO DAILY 06/03/24 06/03/24 ondansetron 4 mg disintegrating 4 mg PO DAILY PRN 06/03/24 06/03/24 tablet Previous Rx's ?Medication ?Instructions ?Recorded amoxicillin 875 mg-potassium 1 tab PO Q12H #14 tabs 06/03/24 clavulanate 125 mg tablet cetirizine 10 mg capsule (Zyrtec) 10 mg PO DAILY PRN allergy 06/04/24 symptoms #30 caps erythromycin 5 mg/gram (0.5 %) eye 1 cm ophthalmic (eye) .COMPLEX 06/04/24 ointment #3.5 grams hydroxyzine pamoate 25 mg capsule 25 mg PO QID PRN allergies #30 caps 06/04/24 (Vistaril) Allergies Allergy/AdvReac Type Severity Reaction Status Date / Time COVID-19 (SARS-CoV-2) Allergy Intermediate Rash Verified 01/04/25 14:28 vaccine, kaitlin hydrocortisone (From Allergy Mild Rash Verified 01/04/25 14:28 Cortizone-10) codeine (CODEINE) Allergy Unknown Verified 01/04/25 14:28 Sulfa (Sulfonamide Allergy Unknown Verified 01/04/25 14:28 Antibiotics) (SULFA (SULFONAMIDE ANTIBIOTICS)) Review of Systems <Skip López MD - Last Filed: 01/05/25 10:42> Review of Systems Narrative: GENERAL: Negative chills, fatigue, malaise, fever, sweats. HEENT: Negative sinus pain, ear pain, sore throat RESPIRATORY: Positive dyspnea, cough CARDIOVASCULAR: Negative chest pain, palpitations GASTROINTESTINAL: Negative vomiting, nausea, abdominal pain : Negative dysuria, frequency, hematuria MUSCULOSKELETAL: Negative muscle or bony pain, positive peripheral edema SKIN: Negative rash, skin lesions NEUROLOGIC: Negative weakness, numbness ROS Unobtainable: All systems reviewed & are unremarkable except as noted in HPI and below Patient History <Skip López MD - Last Filed: 01/05/25 10:42> Social History household members: none Smoking Status: Never smoker alcohol intake: current alcohol intake frequency: 0-2 drinks per day Exam <Skip López MD - Last Filed: 01/05/25 10:42> Narrative Exam Narrative: GENERAL: in no distress, not toxic not dyspneic HEAD: Normocephalic. EYES: Pupils equal round ENT: Mucous membranes moist. NECK: Trachea midline. CARDIOVASCULAR: Regular rate and rhythm RESPIRATORY: Clear to auscultation. Breath sounds equal bilaterally. No wheezes, rales, or rhonchi. GASTROINTESTINAL: Abdomen soft, non-tender EXTREMITIES: No gross deformities. There is 3+ ankle and foot edema. Likely dependent edema but because patient is in a wheelchair BACK: No flank tenderness. NEURO: AOx4. Clear speech SKIN: Warm and dry PSYCH: Not anxious, is cooperative Initial Vital Signs Initial Vital Signs: Vital Signs Pulse Rate 93 H 01/04/25 14:28 Respiratory Rate 24 01/04/25 14:28 Blood Pressure 132/92 H 01/04/25 14:28 Pulse Oximetry 96 01/04/25 14:28 Oxygen Delivery Method Room Air 01/04/25 14:28 <Benja Mcrae MD - Last Filed: 01/05/25 03:58> Initial Vital Signs Initial Vital Signs: Vital Signs Pulse Rate 93 H 01/04/25 14:28 Respiratory Rate 24 01/04/25 14:28 Blood Pressure 132/92 H 01/04/25 14:28 Pulse Oximetry 96 01/04/25 14:28 Oxygen Delivery Method Room Air 01/04/25 14:28 Course <Skip López MD - Last Filed: 01/05/25 10:42> Orders Ordered: Acetaminophen (Acetaminophen 325 Mg Tablet) 650 mg PO Q6H PRN PRN Reason: Fever/Mild Pain (1-3) Albuterol (Albuterol 2.5 Mg/3 Ml Neb (Adult)) 2.5 mg INH [id number] PRN PRN Reason: Shortness Of Breath Albuterol/Ipratropium (Albuterol/Ipratropium 3 Ml Ampul) 3 ml INH [id number] [facility] Enoxaparin Sodium (Enoxaparin 40 Mg/0.4 Ml Syringe) 40 mg SUBCUT DAILY [facility] Last Admin: 01/05/25 09:22 Dose: 40 mg Documented By: KHANH Famotidine (Famotidine 20 Mg/2 Ml Vial) 20 mg IV BID [facility] Last Admin: 01/05/25 09:22 Dose: 20 mg Documented By: Admin: 01/04/25 22:08 Dose: 20 mg Documented By: BENJAMIN Naloxone HCl (Naloxone 0.4 Mg/Ml Vial) 0.2 mg IV Q2MIN PRN PRN Reason: Opiate Reversal Prednisone (Prednisone 20 Mg Tablet) 40 mg PO DAILY [facility] Discontinued Medications Albuterol/Ipratropium (Albuterol/Ipratropium 3 Ml Ampul) 3 ml INH NOW ONE Stop: 01/04/25 15:19 Last Admin: 01/04/25 15:23 Dose: 3 ml Documented By: PERCY Dextrose/Sodium Chloride (Dextrose 5%-0.45% Ns) 1,000 mls @ 100 mls/hr IV CONT [facility] Last Admin: 01/05/25 00:12 Dose: 100 mls/hr Documented By: EFRMIN Lorazepam (Lorazepam 0.5 Mg Tablet) 0.5 mg PO NOW ONE Stop: 01/04/25 19:43 Last Admin: 01/04/25 20:03 Dose: 0.5 mg Documented By: Methylprednisolone (Methylprednisolone 125 Mg/2 Ml Vial) 125 mg IV NOW ONE Stop: 01/04/25 20:20 Last Admin: 01/04/25 20:56 Dose: 125 mg Documented By: Vital Signs Vital signs: Vital Signs - 8 hr 01/04/25 20:15 Blood Pressure 118/80 Fraction of Inspired Oxygen 21 <Benja Mcrae MD - Last Filed: 01/05/25 03:58> Orders Ordered: Acetaminophen (Acetaminophen 325 Mg Tablet) 650 mg PO Q6H PRN PRN Reason: Fever/Mild Pain (1-3) Albuterol (Albuterol 2.5 Mg/3 Ml Neb (Adult)) 2.5 mg INH [id number] PRN PRN Reason: Shortness Of Breath Albuterol/Ipratropium (Albuterol/Ipratropium 3 Ml Ampul) 3 ml INH [id number] [facility] Enoxaparin Sodium (Enoxaparin 40 Mg/0.4 Ml Syringe) 40 mg SUBCUT DAILY [facility] Last Admin: 01/05/25 09:22 Dose: 40 mg Documented By: KHANH Famotidine (Famotidine 20 Mg/2 Ml Vial) 20 mg IV BID [facility] Last Admin: 01/05/25 09:22 Dose: 20 mg Documented By: Admin: 01/04/25 22:08 Dose: 20 mg Documented By: BENJAMIN Naloxone HCl (Naloxone 0.4 Mg/Ml Vial) 0.2 mg IV Q2MIN PRN PRN Reason: Opiate Reversal Prednisone (Prednisone 20 Mg Tablet) 40 mg PO DAILY [facility] Discontinued Medications Albuterol/Ipratropium (Albuterol/Ipratropium 3 Ml Ampul) 3 ml INH NOW ONE Stop: 01/04/25 15:19 Last Admin: 01/04/25 15:23 Dose: 3 ml Documented By: PERCY Dextrose/Sodium Chloride (Dextrose 5%-0.45% Ns) 1,000 mls @ 100 mls/hr IV CONT [facility] Last Admin: 01/05/25 00:12 Dose: 100 mls/hr Documented By: FERMIN Lorazepam (Lorazepam 0.5 Mg Tablet) 0.5 mg PO NOW ONE Stop: 01/04/25 19:43 Last Admin: 01/04/25 20:03 Dose: 0.5 mg Documented By: Methylprednisolone (Methylprednisolone 125 Mg/2 Ml Vial) 125 mg IV NOW ONE Stop: 01/04/25 20:20 Last Admin: 01/04/25 20:56 Dose: 125 mg Documented By: Vital Signs Vital signs: Vital Signs - 8 hr 01/04/25 20:15 Blood Pressure 118/80 Fraction of Inspired Oxygen 21 MDM - SOB/Dyspnea <Skip López MD - Last Filed: 01/05/25 10:42> Lab Data 01/05/25 04:20 01/05/25 04:20 Labs: Lab Results 01/04/25 01/04/25 01/04/25 Range/Units 14:38 17:12 18:54 WBC 3.7 L (4.5-11.0) X10^3/uL RBC 4.63 (4.0-5.2) X10^6/uL Hgb 14.0 (12.0-16.0) g/dL Hct 42.7 (36-46) % MCV 92.3 (80-100) fL MCH 30.2 (26-34) PG MCHC 32.7 (30-36) % RDW 14.4 (11.6-14.8) % Plt Count 175 (150-400) X10^3/uL Neut % (Auto) 67.2 (50-75) % Lymph % (Auto) 22.9 L (25-40) % [place] % (Auto) 7.5 (3-14) % Eos % (Auto) 1.8 L (2-4) % Baso % (Auto) 0.6 (0-2) % Neut # (Auto) 2500 (8984-9461) /uL Lymph # (Auto) 900 L (2731-2760) /uL [place] # (Auto) 300 (0-900) /uL Eos # (Auto) 100 (0-450) /uL Baso # (Auto) 0 (0-100) /uL PT 10.1 (9.4-12.5) SECONDS INR 0.9 (0.9-1.3) APTT 36 (25.1-36.5) SECONDS ABG Sample Site Right radial ABG pH 7.34 L (7.35-7.45) ABG pCO2 76.9 H* (35-45) mmHg ABG pO2 67 L (80-100) mmHg ABG HCO3 41 H (23-27) mmol/L ABG Total CO2 40 H (23-27) mmol/L ABG O2 Saturation 90 L (95-100) % ABG Base Excess 12.1 H (-2-3) mmol/L Dangelo Test N/a VBG pH 7.24 L (7.33-7.43) VBG pO2 78 H (35-45) mmHg VBG HCO3 38 H (24-28) mmol/L VBG Total CO2 37 H (24-29) mmol/L VBG O2 Saturation 92 H (70-75) % VBG Base Excess 6.9 H (0-4) mmol/L Sodium 141 (137-145) mmol/L Potassium 4.3 (3.4-5.1) mmol/L Chloride 95 L (98-107) mmol/L Carbon Dioxide 38 H (22-32) mmol/L BUN 27 H (7-17) mg/dL Creatinine 0.41 L (0.52-1.04) mg/dL Estimated GFR > 60 (>60) mL/min BUN/Creatinine Ratio 65.9 H (6-22) Glucose 105 H (70-99) mg/dL Calcium 9.0 (8.4-10.2) mg/dL Total Bilirubin 0.4 (0.2-1.3) mg/dL AST 34 (14-36) IU/L ALT 23 (<35) IU/L Alkaline Phosphatase 43 (38-126) U/L Total Creatine Kinase 55 (30-135) U/L Troponin I 0.014 (0.01-0.034) ng/mL NT-Pro-B Natriuret Pep 231 H (<125) pg/mL Total Protein 6.4 (6.3-8.2) g/dL Albumin 4.2 (3.5-5.0) g/dL Globulin 2.2 (1.7-4.1) g/dL Albumin/Globulin Ratio 1.9 (1.0-2.8) Imaging Data CT scan - chest: Radiologist's Impression: [address] [address] [address] Scan Report Signed Patient: Bina Garber MR#: [id number] : 1950 Acct:[id number] Age/Sex: 74 / F Date of Service: 01/04/25 Loc: ED Accession Number: [id number] Procedure: CT angio chest PE protocol Ordering Provider: Skip López MD PROCEDURE: CT ANGIO CHEST PE PROTOCOL INDICATIONS: Dyspnea TECHNIQUE: After the administration of intravenous contrast, 2 mm thick sections acquired from the pulmonary apices to the posterior costophrenic angles. 3-dimensional maximum intensity projection (MIP) coronal and sagittal reformats were then acquired through the thorax. For radiation dose reduction, the following was used: automated exposure control, adjustment of mA and/or kV according to patient size. COMPARISON: [facility], CT, CT CHEST ABDOMEN PELVIS WITH CONTRAST, 02/06/2024, 5:56. [facility], CT, CT CHEST ABD PEL WO CON, 01/04/2025, 15:09. FINDINGS: Image quality: There is streak artifact seen through the level of the shoulders. Pulmonary arteries: Pulmonary arteries are normal in size, and demonstrate no intraluminal filling defects to suggest central pulmonary embolism. Lower Neck: No enlarged lymph nodes. Thyroid: No thyroid nodules which require sonographic follow up, per consensus guidelines. Axillae: No enlarged lymph nodes. Chest Wall: Bilateral mammoplasty implants can be seen. Bones: There is a remote, stable T5 anterior wedge deformity. Lungs and Pleura: No pneumothorax or pleural effusions. No consolidation or suspicious nodules. Heart: Heart size is normal. No pericardial effusion. Thoracic Vessels: No aortic aneurysm. Mediastinum and Aye: No enlarged lymph nodes. Esophagus: No wall thickening. No hiatal hernia. Upper Abdomen: Visualized upper abdomen solid organs and bowel loops appear normal. IMPRESSION: No pulmonary embolus. No acute cardiopulmonary process. Additional findings: Remote, stable T5 anterior wedge deformity Mammoplasty implants Dictated by: Rob Avitia M.D. on 01/04/2025 at 15:36 Approved by: Rob Avitia M.D. on 01/04/2025 at 15:39 CT chest abdomen pelvis: Radiologist's Impression: [address] [address] [address] Scan Report Signed Patient: Bina Garber MR#: [id number] : 1950 Acct:[id number] Age/Sex: 74 / F Date of Service: 01/04/25 Loc: ED Accession Number: [id number] Procedure: CT chest abd pel wo con Ordering Provider: Skip López MD PROCEDURE: CT CHEST ABD PEL WO CON INDICATIONS: Shortness of breath/abdominal pain TECHNIQUE: After the administration of oral contrast, 5 mm thick sections acquired from the lung apices to the symphysis pubis. 5 mm thick coronal and sagittal reformats acquired, with additional 7 mm coronal MIP reformats through the lungs. For radiation dose reduction, the following was used: automated exposure control, adjustment of mA and/or kV according to patient size. COMPARISON: [facility], CT, CT CHEST ABDOMEN PELVIS WITH CONTRAST, 02/06/2024, 5:56. FINDINGS: Image quality: Diagnostic. CHEST: Lower Neck: No enlarged lymph nodes. Thyroid: No thyroid nodules which require sonographic follow up, per consensus guidelines. Axillae: No enlarged lymph nodes. Chest Wall: Bilateral breast implants are intact. Lungs and Pleura: No pneumothorax or pleural effusions. Right basilar dependent atelectasis is seen. No consolidation or suspicious nodules. Heart: Heart size is mildly enlarged. No pericardial effusion. Thoracic Vessels: The aorta and pulmonary arteries demonstrate normal size. 2 vessel coronary artery atherosclerotic calcifications are seen. Mediastinum and Aye: No enlarged lymph nodes. Esophagus: No wall thickening. No significant hiatal hernia. ABDOMEN: Liver: No solid mass. Gallbladder: No radiopaque gallstones or wall thickening. Biliary ducts: No biliary dilation. Pancreas: No ductal dilation. Spleen: Size is within normal limits. Adrenal Glands: No adrenal nodules. Kidneys and Ureters: No hydronephrosis. Punctate bilateral nonobstructing renal calculi are seen measures 1-2 mm in size. No solid mass. No complex renal cystic lesion which requires follow up. Stomach and Bowel: There is no bowel obstruction. No abnormal bowel wall thickening or mesenteric fat stranding. Large amount of fecal matter within distal sigmoid colon and rectum is seen. No abscess collection. Postsurgical changes are noted in right lower quadrant. Peritoneum: No abnormal intraperitoneal fluid. No free air. Ventral Wall: No hernia. Abdominal Nodes: No retroperitoneal or mesenteric adenopathy by size criteria. Vessels: Aorta and inferior vena cava are normal in size. PELVIS: Pelvic Organs: Unremarkable. Bladder: Unremarkable. Pelvic Nodes: No enlarged lymph nodes. Miscellaneous: No inguinal hernias are seen. Bones: No aggressive osseous abnormality. Chronic appearing anterior wedge compression deformity at T5 level is again seen and unchanged. IMPRESSION: 1. Right basilar dependent atelectasis. No focal infiltrate, pleural effusion or pneumothorax. 2. No acute inflammatory process is seen in abdomen or pelvis. No abscess collection. No free fluid or free air. Fecal impaction in distal sigmoid colon and rectum. 3. Other chronic findings as described above not significantly changed from 2023 study. Dictated by: Sagar Harley M.D. on 01/04/2025 at 15:42 Approved by: Sagar Harley M.D. on 01/04/2025 at 15:53 US - DVT: Radiologist's Impression: [place] [address] Ultrasound Report Signed Patient: Bina Garber MR#: [id number] : 1950 Acct:[id number] Age/Sex: 74 / F Date of Service: 01/04/25 Loc: ED Accession Number: [id number] Procedure: US perip venous low extrem bi Ordering Provider: Skip López MD PROCEDURE: US PERIP VENOUS LOW EXTREM BI INDICATIONS: SWELLING TECHNIQUE: Real-time imaging, as well as color and pulse Doppler interrogation, were performed of the deep veins of both legs from the inguinal ligament to the popliteal fossa, with documentation of the visualized calf veins. COMPARISON: [facility], US PERIP VENOUS LOW EXTREM BI, 07/28/2024, 15:35. FINDINGS: Right: The common femoral, femoral, popliteal, and the visualized calf veins are normally compressible, and free of intraluminal thrombus. Color and pulse Doppler demonstrate normal phasic intravascular flow. There is normal augmentation response to distal compression maneuver. Left: The common femoral, femoral, popliteal, and the visualized calf veins are normally compressible, and free of intraluminal thrombus. Color and pulse Doppler demonstrate normal phasic intravascular flow. There is normal augmentation response to distal compression maneuver. IMPRESSION: No findings of deep venous thrombosis in either lower extremity. Dictated by: Ba Elias M.D. on 01/04/2025 at 15:07 Approved by: Ba Elias M.D. on 01/04/2025 at 15:08 Chest x-ray: Radiologist's Impression: [address] [address] XRay Report Signed Patient: Bina Garber MR#: [id number] : 1950 Acct:[id number] Age/Sex: 74 / F Date of Service: 01/04/25 Loc: ED Accession Number: [id number] Procedure: XR chest 1V Ordering Provider: Skip López MD PROCEDURE: XR CHEST 1V INDICATIONS: chest pain TECHNIQUE: One view of the chest was acquired. COMPARISON: [facility], , CHEST 2 VIEW, 07/27/2016, 17:09. FINDINGS: Patient is rotated. Surgical changes and devices: None. Lungs and pleura: Lungs are clear. No pleural effusions or pneumothorax. Mediastinum: Mediastinal contours appear normal. Heart size is normal. Bones and chest wall: No suspicious bony lesions. Overlying soft tissues appear unremarkable. IMPRESSION: No acute cardiopulmonary abnormality is seen. Dictated by: Ba Elias M.D. on 01/04/2025 at 15:14 Approved by: Ba Elias M.D. on 01/04/2025 at 15:14 [facility] Narrative Medical decision making narrative: Patient brought in by ambulance from [facility]. [facility] across the street. Patient is wheelchair-bound. Complaints of body wide swelling. Has history of COPD but is not on home oxygen. Patient 98% room air by EMS. Improved with 2 L nasal cannula. Patient sees Dr. Lugo, cardiology services for likely development of CHF. Patient is not on any diuretics. Also complains of generalized abdominal discomfort, patient states she feels constipated. He has not had a bowel movement in a while. Denies any chest pain. Patient and gout. Pants shoes and socks removed. Patient does have history of ALS After history and exam, CBC CMP BNP troponin CT chest abdomen pelvis ultrasound bilateral legs MDM Medical records reviewed: Echocardiogram done 2 years ago ejection fraction 60% Differential considered: Includes but not limited to CHF COPD DVT Lab Test results independently reviewed as above. Pertinent findings: WBC 3.7 hemoglobin 14.0 sodium 141 potassium 4.3 ABG 7.3, 76.9, 67, 41, CO2 40, O2 saturation 90, troponin 0.014 BNP 231 Independently reviewed EKG sinus rhythm rate [address] elevation or depression Imaging studies independently reviewed: Consultations: Re-evaluations: 6:30 p.m.. Patient wishes to be DNR DNI with comfort measures only. She does have established POLST form that she wishes to change from selective treatment to comfort measures only, DNR DNI. Patient agrees this is likely due to her ALS, not COPD. The swelling is not CHF, is it is from dependent edema being in the wheelchair. Discussion: 7:[address] López: Sign out to Dr. Mcrae, hospitalist to admit for ALS exacerbation requiring oxygen. Diagnosis: <Benja Mcrae MD - Last Filed: 01/05/25 03:58> Lab Data Labs: Lab Results 01/04/25 01/04/25 01/04/25 Range/Units 14:38 17:12 18:54 WBC 3.7 L (4.5-11.0) X10^3/uL RBC 4.63 (4.0-5.2) X10^6/uL Hgb 14.0 (12.0-16.0) g/dL Hct 42.7 (36-46) % MCV 92.3 (80-100) fL MCH 30.2 (26-34) PG MCHC 32.7 (30-36) % RDW 14.4 (11.6-14.8) % Plt Count 175 (150-400) X10^3/uL Neut % (Auto) 67.2 (50-75) % Lymph % (Auto) 22.9 L (25-40) % [place] % (Auto) 7.5 (3-14) % Eos % (Auto) 1.8 L (2-4) % Baso % (Auto) 0.6 (0-2) % Neut # (Auto) 2500 (8634-2722) /uL Lymph # (Auto) 900 L (1325-6781) /uL [place] # (Auto) 300 (0-900) /uL Eos # (Auto) 100 (0-450) /uL Baso # (Auto) 0 (0-100) /uL PT 10.1 (9.4-12.5) SECONDS INR 0.9 (0.9-1.3) APTT 36 (25.1-36.5) SECONDS ABG Sample Site Right radial ABG pH 7.34 L (7.35-7.45) ABG pCO2 76.9 H* (35-45) mmHg ABG pO2 67 L (80-100) mmHg ABG HCO3 41 H (23-27) mmol/L ABG Total CO2 40 H (23-27) mmol/L ABG O2 Saturation 90 L (95-100) % ABG Base Excess 12.1 H (-2-3) mmol/L Dangelo Test N/a VBG pH 7.24 L (7.33-7.43) VBG pO2 78 H (35-45) mmHg VBG HCO3 38 H (24-28) mmol/L VBG Total CO2 37 H (24-29) mmol/L VBG O2 Saturation 92 H (70-75) % VBG Base Excess 6.9 H (0-4) mmol/L Sodium 141 (137-145) mmol/L Potassium 4.3 (3.4-5.1) mmol/L Chloride 95 L (98-107) mmol/L Carbon Dioxide 38 H (22-32) mmol/L BUN 27 H (7-17) mg/dL Creatinine 0.41 L (0.52-1.04) mg/dL Estimated GFR > 60 (>60) mL/min BUN/Creatinine Ratio 65.9 H (6-22) Glucose 105 H (70-99) mg/dL Calcium 9.0 (8.4-10.2) mg/dL Total Bilirubin 0.4 (0.2-1.3) mg/dL AST 34 (14-36) IU/L ALT 23 (<35) IU/L Alkaline Phosphatase 43 (38-126) U/L Total Creatine Kinase 55 (30-135) U/L Troponin I 0.014 (0.01-0.034) ng/mL NT-Pro-B Natriuret Pep 231 H (<125) pg/mL Total Protein 6.4 (6.3-8.2) g/dL Albumin 4.2 (3.5-5.0) g/dL Globulin 2.2 (1.7-4.1) g/dL Albumin/Globulin Ratio 1.9 (1.0-2.8) [facility] Narrative Medical decision making narrative: Patient brought in by ambulance from [facility]. [facility] across the street. Patient is wheelchair-bound. Complaints of body wide swelling. Has history of COPD but is not on home oxygen. Patient 98% room air by EMS. Improved with 2 L nasal cannula. Patient sees Dr. Lugo, cardiology services for likely development of CHF. Patient is not on any diuretics. Also complains of generalized abdominal discomfort, patient states she feels constipated. He has not had a bowel movement in a while. Denies any chest pain. Patient and gout. Pants shoes and socks removed. Patient does have history of ALS After history and exam, CBC CMP BNP troponin CT chest abdomen pelvis ultrasound bilateral legs [facility] Medical records reviewed: Echocardiogram done 2 years ago ejection fraction 60% Differential considered: Includes but not limited to CHF COPD DVT Lab Test results independently reviewed as above. Pertinent findings: WBC 3.7 hemoglobin 14.0 sodium 141 potassium 4.3 ABG 7.3, 76.9, 67, 41, CO2 40, O2 saturation 90, troponin 0.014 BNP 231 Independently reviewed EKG sinus rhythm rate [address] elevation or depression Imaging studies independently reviewed: Consultations: Re-evaluations: 6:30 p.m.. Patient wishes to be DNR DNI with comfort measures only. She does have established POLST form that she wishes to change from selective treatment to comfort measures only, DNR DNI. Patient agrees this is likely due to her ALS, not COPD. The swelling is not CHF, is it is from dependent edema being in the wheelchair. Discussion: 7:[address] López: Sign out to Dr. Mcrae, hospitalist to admit for ALS exacerbation requiring oxygen. Diagnosis: 01/04/251899, Thor. Sign-out from Dr. López. 74-year-old female with history of ALS, DNR/DNI code status, here from [facility], with increased shortness of breath. Blood gas shows pCO2 71. Seems to be improving on BiPAP. BNP normal. Has lower extremity edema likely from wheelchair positioning, congestive heart failure seems less likely. Chest x-ray no acute changes. Lower extremity DVT study negative for venous thrombosis. CT chest abdomen and pelvis showed atelectatic change in the lungs, no infiltrates, no fluid overload, no acute abdominopelvic process. Dr. López spoke into daytime hospitalist Dr. Palma who reportedly was reviewing chart. Anticipate admission. Assumed care. 191, [employer] texting with Louie, [facility], who has been paged. 1930, patient had trial of BiPAP, felt better while on BiPAP, then took the BiPAP off, was not aware she was supposed to be leaving it on. We will restart BiPAP. Await call back from hospitalist. 2019, case discussed with hospitalist Dr. Lockwood who accepts patient for admission Discharge Plan Departure Patient Disposition: Admitted As Inpatient Clinical Impression: Generalized weakness, Acute respiratory failure with hypoxia and hypercarbia, DNR (do not resuscitate), Amyotrophic lateral sclerosis (ALS) Admit Date/Time: 01/04/25 20:22 Admit Provider: Amaury Nobles
--- NOTE | 2025-01-04 14:38 | EKG_ITS ---
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
[2025-01-04 14:45] LABS: Add Manual Diff / Slide Review NO; Basophils Absolute Auto 0 /uL (0-100); Basophils Percent Auto 0.6 % (0-2); Eosinophils Absolute Auto 100 /uL (0-450); Eosinophils Percent Auto 1.8 % (2-4); Hematocrit 42.7 % (36-46); Lymphocytes Absolute Auto 900 /uL (1100-4500); Lymphocytes Percent Auto 22.9 % (25-40); Mean Corpuscular HGB Conc 32.7 % (30-36); Mean Corpuscular Hemoglobin 30.2 PG (26-34); Mean Corpuscular Volume 92.3 fL (80-100); Monocytes Absolute Auto 300 /uL (0-900); Monocytes Percent Auto 7.5 % (3-14); Neutrophils Absolute Auto 2500 /uL (1500-7000); Neutrophils Percent Auto 67.2 % (50-75); Platelet Count 175 X10^3/uL (150-400); Red Blood Cell Count 4.63 X10^6/uL (4.0-5.2); Red Cell Distribution Width 14.4 % (11.6-14.8); White Blood Cell Count 3.7 X10^3/uL (4.5-11.0)
--- NOTE | 2025-01-04 14:50 | PC.NURSE ---
Pt has 3+ swelling/edema to bilater LE. Has toe ring on. Swelling around ring. Removed with ring cutter.
[2025-01-04 14:56] LABS: INR 0.9 (0.9-1.3); Prothrombin Time 10.1 SECONDS (9.4-12.5)
[2025-01-04 14:58] LABS: PTT Partial Thromboplastin Tim 36 SECONDS (25.1-36.5)
[2025-01-04 15:02] LABS: Alanine Aminotransferase 23 IU/L (<35); Albumin 4.2 g/dL (3.5-5.0); Albumin Globulin Ratio 1.9 (1.0-2.8); Alkaline Phosphatase 43 U/L (38-126); Aspartate Aminotransferase 34 IU/L (14-36); BUN Creatinine Ratio 65.9 (6-22); Bilirubin Total 0.4 mg/dL (0.2-1.3); Blood Urea Nitrogen 27 mg/dL (7-17); Chloride 95 mmol/L (98-107); Creatine Kinase 55 U/L (30-135); Estimated Glomerular Filt Rate > 60 mL/min (>60); Globulin 2.2 g/dL (1.7-4.1); Glucose 105 mg/dL (70-99); HEMOLYSIS 17 (0-50); Potassium 4.3 mmol/L (3.4-5.1); Sodium 141 mmol/L (137-145); Total Protein 6.4 g/dL (6.3-8.2)
[2025-01-04 15:08] LABS: Carbon Dioxide 38 mmol/L (22-32)
[2025-01-04 15:10] LABS: NT-proBNP (BNP-Adult 18+) 231 pg/mL (<125)
[2025-01-04 15:14] LABS: Troponin I 0.014 ng/mL (0.01-0.034)
[2025-01-04] MEDS: ALBUTEROL/IPRATROPIUM 3 ML AMPUL INH (15:23)
--- NOTE | 2025-01-04 16:03 | PC.NURSE ---
Sats decreased to 87% on 1L per NC. Increased to 3L and encouraged to take deep breaths. O2 sats increased to 98%.
--- NOTE | 2025-01-04 16:09 | DI.CT.S_ITS ---
PROCEDURE: CT ANGIO CHEST PE PROTOCOL INDICATIONS: Dyspnea TECHNIQUE: After the administration of intravenous contrast, 2 mm thick sections acquired from the pulmonary apices to the posterior costophrenic angles. 3-dimensional maximum intensity projection (MIP) coronal and sagittal reformats were then acquired through the thorax. For radiation dose reduction, the following was used: automated exposure control, adjustment of mA and/or kV according to patient size. COMPARISON: [facility], CT, CT CHEST ABDOMEN PELVIS WITH CONTRAST, 02/06/2024, 5:56. [facility], CT, CT CHEST ABD PEL WO CON, 01/04/2025, 15:09. FINDINGS: Image quality: There is streak artifact seen through the level of the shoulders. Pulmonary arteries: Pulmonary arteries are normal in size, and demonstrate no intraluminal filling defects to suggest central pulmonary embolism. Lower Neck: No enlarged lymph nodes. Thyroid: No thyroid nodules which require sonographic follow up, per consensus guidelines. Axillae: No enlarged lymph nodes. Chest Wall: Bilateral mammoplasty implants can be seen. Bones: There is a remote, stable T5 anterior wedge deformity. Lungs and Pleura: No pneumothorax or pleural effusions. No consolidation or suspicious nodules. Heart: Heart size is normal. No pericardial effusion. Thoracic Vessels: No aortic aneurysm. Mediastinum and Aye: No enlarged lymph nodes. Esophagus: No wall thickening. No hiatal hernia. Upper Abdomen: Visualized upper abdomen solid organs and bowel loops appear normal. IMPRESSION: No pulmonary embolus. No acute cardiopulmonary process. Additional findings: Remote, stable T5 anterior wedge deformity Mammoplasty implants Dictated by: Rob Avitia M.D. on 01/04/2025 at 15:36 Approved by: Rob Avitia M.D. on 01/04/2025 at 15:39
[2025-01-04 17:15] LABS: Base Excess VBG 6.9 mmol/L (0-4); HCO3 VBG 38 mmol/L (24-28); Oxygen Saturation VBG 92 % (70-75); PO2 VBG 78 mmHg (35-45); Total CO2 VBG 37 mmol/L (24-29); pH VBG 7.24 (7.33-7.43)
--- NOTE | 2025-01-04 17:15 | PC.NURSE ---
Pt not responding to voice commands. Pt will open eyes but not respond verbally. VBG drawn. Dr López notified. RT in room initiating BiPap
--- NOTE | 2025-01-04 17:34 | RT ---
BiPAP initiated at 17:22 verbal order from ED MD, 13/6 at a rate of 10 on 21% fiO2,
[2025-01-04 18:59] LABS: Base Excess ABG 12.1 mmol/L (-2-3); Blood Gas Collection Site Right Radial; HCO3 ABG 41 mmol/L (23-27); Oxygen Saturation ABG 90 % (95-100); PCO2 ABG 76.9 mmHg (35-45); PO2 ABG 67 mmHg (80-100); TCO2 ABG 40 mmol/L (23-27); pH ABG 7.34 (7.35-7.45)
[2025-01-04] MEDS: LORazepam 0.5 MG TABLET PO (20:03)
[2025-01-04] MEDS: methylPREDNISolone 125 MG/2 ML VIAL IV (20:56)
--- NOTE | 2025-01-04 21:10 | PM.HP.1 ---
History of Present Illness History of Present Illness Date Patient Seen: 01/04/25 Time Patient Seen: 23:30 Chief complaint: shortness of breath Narrative: 74 y/o resident of [facility] with PMH of ALS, depression, hypothyroidism, HTN, TBI, presented with severe shortness of breath, hypercapnic and started on BiPAP. Workup not suggestive of pneumonia or pulmonary edema. CXR showing atelectasis, On admission to ICU patient was sedated on a BiPAP, unable to wake up. Two of her sisters and brother in-law were present. [facility] Social History household members: none Smoking Status: Never smoker alcohol intake: current Meds Home Medications and Allergies Home Medications ?Medication ?Instructions ?Recorded ?Confirmed ?Type cholecalciferol (vitamin D3) 50 50 mcg PO DAILY 08/08/20 04/12/23 History mcg (2,000 unit) capsule levothyroxine 50 mcg tablet 50 mcg PO DAILY 04/12/23 04/12/23 History amoxicillin 875 mg-potassium 1 tab PO Q12H #14 tabs 06/03/24 06/03/24 Rx clavulanate 125 mg tablet gabapentin 100 mg capsule 100 mg PO 3XD 06/03/24 06/03/24 History ipratropium 20 mcg-albuterol 100 1 puff inhalation 4XD 06/03/24 06/03/24 History mcg/actuation mist for inhalation (Combivent Respimat) ipratropium 20 mcg-albuterol 100 inhalation Asthma 06/03/24 06/03/24 History mcg/actuation mist for inhalation (Combivent Respimat) lisinopril 5 mg tablet 5 mg PO DAILY 06/03/24 06/03/24 History lorazepam 0.5 mg tablet 0.5 mg PO ONCE PM PRN anxiety 06/03/24 06/03/24 History meloxicam 7.5 mg tablet 7.5 mg PO DAILY 06/03/24 06/03/24 History naltrexone 50 mg tablet 50 mg PO DAILY 06/03/24 06/03/24 History ondansetron 4 mg disintegrating 4 mg PO DAILY PRN 06/03/24 06/03/24 History tablet cetirizine 10 mg capsule (Zyrtec) 10 mg PO DAILY PRN allergy 06/04/24 Rx symptoms #30 caps erythromycin 5 mg/gram (0.5 %) eye 1 cm ophthalmic (eye) .COMPLEX 06/04/24 Rx ointment #3.5 grams hydroxyzine pamoate 25 mg capsule 25 mg PO QID PRN allergies #30 caps 06/04/24 06/04/24 Rx (Vistaril) Allergies Allergy/AdvReac Type Severity Reaction Status Date / Time COVID-19 (SARS-CoV-2) Allergy Intermediate Rash Verified 01/04/25 14:28 vaccine, kaitlin hydrocortisone (From Allergy Mild Rash Verified 01/04/25 14:28 Cortizone-10) codeine (CODEINE) Allergy Unknown Verified 01/04/25 14:28 Sulfa (Sulfonamide Allergy Unknown Verified 01/04/25 14:28 Antibiotics) (SULFA (SULFONAMIDE ANTIBIOTICS)) Review of Systems Review of Systems Narrative: Unobtainable. Sedated Exam Vital Signs (past 8 hours): - 01/04/25 14:28 01/04/25 15:46 01/04/25 16:00 Pulse Rate 93 H 79 76 Respiratory Rate 24 30 H 30 H Blood Pressure 132/92 H 145/78 H Pulse Oximetry 96 86 L 96 Oxygen Delivery Method Room Air Nasal Cannula Nasal Cannula Oxygen Flow Rate 2 3 Fraction of Inspired Oxygen 01/04/25 16:26 01/04/25 16:26 01/04/25 16:30 Pulse Rate 78 Respiratory Rate 34 H Blood Pressure 145/74 H 137/71 Pulse Oximetry 100 Oxygen Delivery Method Oxygen Flow Rate Fraction of Inspired Oxygen 01/04/25 16:30 01/04/25 17:00 01/04/25 17:00 Pulse Rate 79 72 Respiratory Rate 35 H 24 Blood Pressure 137/63 Pulse Oximetry 99 96 Oxygen Delivery Method Nasal Cannula Oxygen Flow Rate 3 Fraction of Inspired Oxygen 01/04/25 17:25 01/04/25 20:15 Pulse Rate Respiratory Rate Blood Pressure 137/63 118/80 Pulse Oximetry Oxygen Delivery Method Oxygen Flow Rate Fraction of Inspired Oxygen 21 21 Fraction of Inspired Oxygen 21 Oxygen Delivery Method Nasal Cannula Oxygen Flow Rate 3 Narrative Exam Narrative: General - sedated on BiPAP, family at bedside RS - poor air flow to both bases CVS - RRR GI - w/o distension Objective ECG Impression: NSR [address] scan - chest: Radiologist's impression: No pulmonary embolus. No acute cardiopulmonary process. Venous Doppler: Radiologist's impression: Without DVT in Rt or Lt leg Labs 01/05/25 04:20 01/05/25 04:20 Labs: Laboratory Results - last 24 hr 01/04/25 01/04/25 01/04/25 14:38 17:12 18:54 WBC 3.7 L RBC 4.63 Hgb 14.0 Hct 42.7 MCV 92.3 MCH 30.2 MCHC 32.7 RDW 14.4 Plt Count 175 Neut % (Auto) 67.2 Lymph % (Auto) 22.9 L Mellette % (Auto) 7.5 Eos % (Auto) 1.8 L Baso % (Auto) 0.6 Neut # (Auto) 2500 Lymph # (Auto) 900 L Mellette # (Auto) 300 Eos # (Auto) 100 Baso # (Auto) 0 PT 10.1 INR 0.9 APTT 36 ABG Sample Site Right radial ABG pH 7.34 L ABG pCO2 76.9 H* ABG pO2 67 L ABG HCO3 41 H ABG Total CO2 40 H ABG O2 Saturation 90 L ABG Base Excess 12.1 H Dangelo Test N/a VBG pH 7.24 L VBG pO2 78 H VBG HCO3 38 H VBG Total CO2 37 H VBG O2 Saturation 92 H VBG Base Excess 6.9 H Sodium 141 Potassium 4.3 Chloride 95 L Carbon Dioxide 38 H BUN 27 H Creatinine 0.41 L Estimated GFR > 60 BUN/Creatinine Ratio 65.9 H Glucose 105 H Calcium 9.0 Total Bilirubin 0.4 AST 34 ALT 23 Alkaline Phosphatase 43 Total Creatine Kinase 55 Troponin I 0.014 NT-Pro-B Natriuret Pep 231 H Total Protein 6.4 Albumin 4.2 Globulin 2.2 Albumin/Globulin Ratio 1.9 Assessment & Plan Assessment and plan (1) Acute hypercapnic respiratory failure: Status: Acute (2) Amyotrophic lateral sclerosis (ALS): Status: Acute (3) Depression: Qualifiers: Depression Type: major depressive disorder Major depression recurrence: single episode Active/Remission status: currently active Major depression episode severity: severe Psychotic features: without psychotic features Qualified Code(s): F32.2 - Major depressive disorder, single episode, severe without psychotic features Status: Acute Assessment & Plan narrative: Acute Hypercapnic Respiratory Failure - BiPAP settings have been adjusted several times overnight - poor prognosis as related to ALS - she should not be given benzodiazepines as she is very sensitive, as per one of 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 Patient located at [place], [place]. Provider located in [place]. Time-Based Coding :: [TOTAL MINUTES] spent with patient and on the chart (including review of chart, obtaining history, exam, reviewing outside data, placing orders, documenting exam and treatment plan, and counseling patient) on [DATE].
[2025-01-04] MEDS: FAMOTIDINE 20 MG/2 ML VIAL IV (22:08)
--- NOTE | 2025-01-04 23:28 | PC.NURSE ---
This RN checks on patient. She remains on Bipap and tolerating well. Patient opens eyes to this RN voice/verbal response. Patient has limited verbal response. Accepting nurse made aware.
[2025-01-05] VITALS (65 sets, daily range): BP systolic 97–148; BP diastolic 56–95; PULSE 68–92; RESP 11–50; TEMP 36.1–36.9; O2SAT 87–100; BMI 18.3
[2025-01-05] MEDS: DEXTROSE 5%-0.45% NS 1,000 ML 100 ML IV (00:12)
[2025-01-05 00:50] LABS: Allen Test for ABG Passed? Positive; Base Excess ABG 8.9 mmol/L (-2-3); Blood Gas Collection Site Right Radial; Delivery System BiPAP; HCO3 ABG 37 mmol/L (23-27); Oxygen Saturation ABG 84 % (95-100); PCO2 ABG 67.2 mmHg (35-45); PEEP 6; PO2 ABG 53 mmHg (80-100); Pressure Support 14; TCO2 ABG 36 mmol/L (23-27); pH ABG 7.35 (7.35-7.45)
[2025-01-05 00:58] LABS: Base Excess ABG 12.2 mmol/L (-2-3); HCO3 ABG 41 mmol/L (23-27); Oxygen Saturation ABG 82 % (95-100); PCO2 ABG 74.6 mmHg (35-45); PO2 ABG 52 mmHg (80-100); TCO2 ABG 40 mmol/L (23-27); pH ABG 7.35 (7.35-7.45)
--- NOTE | 2025-01-05 01:48 | PC.NURSE ---
Addendum entered by Vargas Estrada R.N. 01/05/25 05:30: 0525: PT AWOKE DURING TURN AND ABLE TO OPEN EYES AND SQUEEZE HAND ON COMMAND. PT ASKING WHERE SHE IS. PATIENT ORIENTED TO SITUATION AND PLAN OF CARE. Addendum entered by Vargas Estrada R.N. 01/05/25 05:15: PHOTO TAKEN OF PT BOTTOM DURING ADMISSION. IVF STARTED. HUERTA PLACED. PT REMAINS ON BIPAP. PT RESPONDING TO PHYSICAL STIMULI/ LOCALIZING TO PAIN. ABG REDRAWN AND CRITICAL. VALUES SENT TO MD. NO NEW ORDERS. LABS DRAWN AND PENDING. Original Note: PT ARRIVED FROM ED AT 2315. UNRESPONSIVE. MINIMAL GRIMACE WITH PAINFUL STIMULI. 95% ON BIPAP. L AC. SISTERS AT BEDSIDE STATE THEY WOULD LIKE TO SPEAK WITH MD REGARDING QUESTIONS ABOUT CODE STATUS/ MEDS AND CARE RECEIVED IN ED. MD IN TO SEE PATIENT AND DISCUSS PLAN OF CARE. HAD LENGTHY DISCUSSION WITH FAMILY AND ANSWERED ALL QUESTIONS. PLAN TO START IVF AND INSERT HUERTA PER MD ORDERS. MD CELL GIVEN TO RT JESSICA TO ADJUST BIPAP SETTINGS. NEW ABGS ORDERED. CARE ONGOING.
[2025-01-05 03:46] LABS: Allen Test for ABG Passed? Positive; Base Excess ABG 8.7 mmol/L (-2-3); Blood Gas Collection Site Left Radial; Delivery System BiPAP; HCO3 ABG 38 mmol/L (23-27); Oxygen Saturation ABG 97 % (95-100); PCO2 ABG 78.7 mmHg (35-45); PEEP 8; PO2 ABG 106 mmHg (80-100); Respiratory Rate 18; TCO2 ABG 37 mmol/L (23-27)
[2025-01-05 04:46] LABS: Add Manual Diff / Slide Review NO; Basophils Absolute Auto 0 /uL (0-100); Basophils Percent Auto 0.5 % (0-2); Eosinophils Absolute Auto 0 /uL (0-450); Eosinophils Percent Auto 0.1 % (2-4); Hematocrit 42.4 % (36-46); Hemoglobin 13.9 g/dL (12.0-16.0); Lymphocytes Absolute Auto 300 /uL (1100-4500); Lymphocytes Percent Auto 9.5 % (25-40); Mean Corpuscular HGB Conc 32.7 % (30-36); Mean Corpuscular Volume 91.9 fL (80-100); Monocytes Absolute Auto 0 /uL (0-900); Monocytes Percent Auto 1.2 % (3-14); Neutrophils Absolute Auto 3000 /uL (1500-7000); Neutrophils Percent Auto 88.7 % (50-75); Platelet Count 149 X10^3/uL (150-400); Red Blood Cell Count 4.62 X10^6/uL (4.0-5.2); Red Cell Distribution Width 14.4 % (11.6-14.8); White Blood Cell Count 3.4 X10^3/uL (4.5-11.0)
[2025-01-05 05:03] LABS: BUN Creatinine Ratio 73.3 (6-22); Blood Urea Nitrogen 22 mg/dL (7-17); Calcium 8.8 mg/dL (8.4-10.2); Carbon Dioxide 39 mmol/L (22-32); Chloride 96 mmol/L (98-107); Estimated Glomerular Filt Rate > 60 mL/min (>60); Glucose 174 mg/dL (70-99); HEMOLYSIS < 15 (0-50); Potassium 4.8 mmol/L (3.4-5.1); Sodium 137 mmol/L (137-145)
[2025-01-05 06:59] LABS: MRSA (Nasal) PCR NOT DETECTED (Not Detect)
[2025-01-05] MEDS: ENOXAPARIN 40 MG/0.4 ML SYRINGE SUBCUT (09:22)
[2025-01-05] MEDS: FAMOTIDINE 20 MG/2 ML VIAL IV ×2 (09:22→21:12)
[2025-01-05] MEDS: predniSONE 20 MG TABLET 40 MG PO (11:10)
[2025-01-05] MEDS: BISACODYL 10 MG SUPP PR (13:43)
--- NOTE | 2025-01-05 13:43 | OT.IP.EVAL ---
Current Diagnoses Major depressive disorder, single episode, severe without psychotic features (01/04/25) Amyotrophic lateral sclerosis (01/04/25) Acute respiratory failure with hypercapnia (01/04/25) Occupational Therapy Inpatient Evaluation/Re-Eval M1 PT/OT-IP Prior Functional Status Start: 01/05/25 14:24 Freq: Status: Active Protocol: Document 01/05/25 14:25 [facility] (Rec: 01/05/25 14:50 [facility] Desktop) Medical Review Prior Functional Status Communication I Mobility and Gait Pt states has two person to stand pivot her to the wc. Pt states mostly gets pushed in her wc due to weakness. Pt states has been trying to get an motorized powerchair but has been unsuccessful. Per staff at [facility] pt needing 2-3 person assist for transfers. Activities of Daily Pt able to eat and do grooming needs after set-up. Pt Living and IADL's states still takes her own medications and pays her own bills. Pt states now is looking to get POA. Per staff at [facility] pt is dependent for all dressing, toileting , and bathing needs. Prior Functional Pt is dependent on staff for all mobility needs. Level (Other details ) Social History Household Members none Living Arrangements Assisted Living M2 OT-IP Current Condition Start: 01/05/25 14:24 Freq: Status: Active Protocol: Document 01/05/25 14:25 [facility] (Rec: 01/05/25 14:50 [facility] Desktop) Occupational Therapy Current Condition Current Condition Evaluation Date 01/05/25 Treatment Diagnosis Abdominal pain, acute respiratory failure Diagnosis Onset Date 01/04/25 M3 OT- IP Subjective and Pain Start: 01/05/25 14:24 Freq: Status: Active Protocol: Document 01/05/25 14:25 [facility] (Rec: 01/05/25 14:50 [facility] Desktop) OT- Subjective Occupational Therapy Visit Type Type Initial Evaluation Visit Start Time 13:00 Visit Stop Time 13:43 Occupational Therapy Visit Comments Patient Comments Pt in the process on getting up to use the BSC when OT came in. Patient/Caregiver To get better and be able to get a power wheelchair. Goals OT Pain Assessment Pain When Pain Assessed At Rest Pain Present Pain Present Pain Reported Location Lower Abdomen Pain Behaviors Facial Grimacing,Holding Area M4 OT- IP ADL's Start: 01/05/25 14:24 Freq: Status: Active Protocol: Document 01/05/25 14:25 [facility] (Rec: 01/05/25 14:50 [facility] Desktop) OT [id number] Comments OT Self-Feeding Not at meal time. Pt however needs assist with set-up. Comments OT ADL-Grooming Comments OT Grooming Comments Pt able to wash her face after set-up of wash cloth. OT ADL-Oral Care Comments Oral Care Comments Not performed, pt states uses an electric toothbrush at home. OT ADL-Dressing General Eval Lower Body Dressing Total Assistance Ability Areas Needing Underpants/Brief,Socks Assistance OT ADL-Toileting General Evaluation Toileting Ability Total Assistance Areas Needing Manage Clothing,Perform Perineal Hygiene Assistance Devices Toileting Assistive Commode Devices Comments OT Toileting Able to scoot pt forwards on the BSC with total x2 and totalAx1 via blocking her knee and lifting her up so nursing aid able to wipe her. OT ADL-Bathing General Evaluation Bathing Ability Maximal Assistance Areas Needing Retrieving/Setting Up Items,Wash/Dry Face,Wash/Dry Back Assistance ,Wash/Dry Perineal Area,Wash/Dry Lower Extremities Comments OT Bathing Comments Able to assist pt to sponge off while on the BSC. Pt able assist with her chest and arms. M5 OT- IP IADL's Start: 01/05/25 14:24 Freq: Status: Active Protocol: Document 01/05/25 14:25 [facility] (Rec: 01/05/25 14:50 [facility] Desktop) OT-Instrumental Activities of Daily Living Home Safety Awareness Awareness of Need Good Awareness for Assistance at Home Ability to Problem Able to Problem Solve Solve Emergency Situations Medication Management Medication Pt states takes her own medications. Best for pt to Management Comments consider getting assist. Money Management Money Management Pt states does her own money management needs but Comments states to look into getting a POA. Meal Preparation Meal Preparation Caregiver Provides Assist Retail Management Trainee Retail Management Trainee Caregiver Provides Assist M6 OT- IP Functional Cognition Start: 01/05/25 14:24 Freq: Status: Active Protocol: Document 01/05/25 14:25 [facility] (Rec: 01/05/25 14:50 [facility] Desktop) Cognitive Factors Limiting Selfcare Function Cognitive Ability Level of Alertness Alert Patient Orientation Name,Age,Birthday,Month,Date,Year,Day of Week,Place, Situation Attention Span Capable of Focused Attention,Capable of Sustained Ability Attention Ability to Follow Able to Follow One Step Commands Commands Cognitive Comments Cognitive Assessment Pt able to follow command for ADL and mobility needs. Comments Pt is very direct of her wants and needs. OT- Vision and Hearing OT- Hearing Assessment OT- Hearing WFL Assessment OT- Vision Assessment Visual Acuity Glasses For Reading Occular Pursuits WFL Visual Convergence WFL M7 OT- IP Mobility and Balance Start: 01/05/25 14:24 Freq: Status: Active Protocol: Document 01/05/25 14:25 [facility] (Rec: 01/05/25 14:50 [facility] Desktop) OT- Bed Mobility Assessment Supine to Sit Supine to Sit Assist Total Assistance,2 Person Assistance Sit to Supine Sit to Supine Assist Total Assistance,2 Person Assistance OT-Transfer Assessment Sit to and From Stand Sit to and from Maximum Assistance,Total Assistance,1 Person Assistance Stand ,2 Person Assistance Transfers Transfer Ability Total Assistance,2 Person Assistance Technique Transfer Destination Bed,Bedside Commode Transfer Technique Squat Pivot Devices Transfer Assistive Gait Belt Devices Comments Mobility Comments Pt states at home staff just stand/squat pivot for transfers. Per staff when called states having to have 2-3 person to assist her. At this time much safer to use a Ronnell Lift with pt. MAX/total X2 to get to the edge of the bed with MAX AX 1 for sitting balance. MAXA/toatl X 2 to stand and block her knee so able to transfer her to the BSC and bed, another person to help guide her hips. Pt not able to move her legs on OT eval and having to use her hands to help try to move her legs to the edge of bed. OT- Balance Assessment Sitting Balance and Reactions Static Sitting Poor Balance Ability Dynamic Sitting Poor Balance Ability Standing Balance and Reactions Static Standing Poor Balance Ability Dynamic Standing Poor Balance Ability Comments Other Balance Tests/ Pt sit with flexed posture at trunk and neck. Pt also Deviations/Treatment sit with posterior tilt. Pt would greatly benefit from : a custom power wheelchair. M8 OT- IP Objective Assessments Start: 01/05/25 14:24 Freq: Status: Active Protocol: Document 01/05/25 14:25 [facility] (Rec: 01/05/25 14:50 [facility] Desktop) OT Gross Range of Motion Upper Extremity Range of Motion Assessment Bilaterally Impaired OT Strength Upper Extremity Strength Assessment Bilaterally Impaired OT Sensation Assessment Comments Summary Comments Intact for light touch. M9 OT- IP Assessment and Plan Start: 01/05/25 14:24 Freq: Status: Active Protocol: Document 01/05/25 14:25 [facility] (Rec: 01/05/25 14:50 [facility] Desktop) OT Summary Assessment and Plan Potential Rehabilitation Poor Potential Analytic Complexity High at Evaluation Summary Assessment Summary Pt high complexity and history of ALS which appears to be progressing. Staff called at [facility] and states pt able to eat and do oral care needs after set-up otherwise in dependent on staff for all needs. Pt at times requiring 3 person assist for transfers and is dependent on them to push her in the wc per staff at [facility]. Pt would benefit from a custom power wheelchair, which pt states has been trying to get. Pt is at baseline for ADL and transfer needs. NO further OT indicated at this time. Discharge pt from OT services, hospitalist, CM, and nursing aware. Frequency of Treatment Frequency Of Discharge Treatment
[2025-01-05] MEDS: ALBUTEROL/IPRATROPIUM 3 ML AMPUL INH ×2 (14:17→19:31)
--- NOTE | 2025-01-05 15:20 | PT.IIE ---
Current Diagnoses Major depressive disorder, single episode, severe without psychotic features (01/04/25) Amyotrophic lateral sclerosis (01/04/25) Acute respiratory failure with hypercapnia (01/04/25) Physical Therapy Inpatient Evaluation/Re-Eval M1 PT/OT-IP Prior Functional Status Start: 01/05/25 16:23 Freq: NEEDED Status: Active Protocol: Document 01/05/25 15:20 AB (Rec: 01/05/25 16:34 AB [id number]) Medical Review Prior Functional Status Medical History Yes Reviewed Communication able to make needs known Mobility and Gait pt stated that she is w/c bound and uses a manual w/c for mobility. pt stated that she needs 2 person assist to pivot transfer w/c<>bed/toilet Activities of Daily per OT note: Pt able to eat and do grooming needs after Living and IADL's set-up. Pt states still takes her own medications and pays her own bills. Pt states now is looking to get POA. Per staff at [facility] pt is dependent for all dressing, toileting, and bathing needs. Social History Household Members none Living Arrangements Assisted Living Number of Stairs To pt lives at [facility] Enter/Railing? Home Equipment Manual Wheelchair M2 PT-IP Current Condition Start: 01/05/25 16:23 Freq: NEEDED Status: Active Protocol: Document 01/05/25 15:20 AB (Rec: 01/05/25 16:34 AB [id number]) Physical Therapy Current Condition Current Condition Evaluation Date 01/05/25 Treatment Diagnosis respiratory failure; generalized weakness Onset Date 01/04/25 M3 PT-IP Subjective Start: 01/05/25 16:23 Freq: NEEDED Status: Active Protocol: Document 01/05/25 15:20 AB (Rec: 01/05/25 16:34 AB [id number]) Subjective Physical Therapy Visit Type Type Initial Evaluation Visit Start Time 15:20 Visit Stop Time 15:35 Number of CLOTH WASHER OPERATOR Visits 0 M4 PT-IP Mobility and Gait Start: 01/05/25 16:23 Freq: NEEDED Status: Active Protocol: Document 01/05/25 15:20 AB (Rec: 01/05/25 16:34 AB [id number]) PT-Bed Mobility Assessment Supine to Sit Supine to Sit Maximum Assistance,1 Person Assistance,Head of Bed Elevated,Bedrails PT-Transfer Assessment Sit to and From Stand Sit to and from Maximum Assistance,2 Person Assistance,Use of Upper Stand Extremities Equipment Transfer Assistive None,Gait Belt Device Orthotic/Prosthetic No Devices or Brace: Transfers Transfer Destination Bedside Commode Transfer Technique Squat Pivot Transfer Ability Level of Assist Maximum Assistance,2 Person Assistance,Use of Upper Extremities Comments Mobility Comments pt in bed. nurse stated that pt needs to use the toilet . obtained PLOf and home set up from pt. pt completed supine to sit max A and max cues. max A to total A for scooting to EOB. mod A for sitting on EOB. completed squat pivot transfer bed to bedside commode. Left pt with nurse. informed pt, nurse and hospitalist that pt is at PLOF and no further PT indicated at this time. PT-Balance Assessment Sitting Balance and Reactions Static Sitting Poor Balance Ability Dynamic Sitting Poor Balance Ability Standing Balance and Reactions Static Standing Poor Balance Ability Dynamic Standing Poor Balance Ability M5 PT-IP Objective Assessments Start: 01/05/25 16:23 Freq: NEEDED Status: Active Protocol: Document 01/05/25 15:20 AB (Rec: 01/05/25 16:34 AB [id number]) Orientation Orientation/Cognition Level of Alertness Alert Orientation Name,Place,Situation Language Function No Deficits Noted Ability Safety Awareness Decreased Safety Awareness Memory Description No Deficits Noted Gross Range of Motion Lower Extremity ROM Assessment Within Functional Limits Strength Lower Extremity Strength Assessment Bilaterally Impaired Comments Strength Comments RLE: 2+/5 LLE: 3-/5 M6 PT-IP Treatment Start: 01/05/25 16:23 Freq: NEEDED Status: Active Protocol: Document 01/05/25 15:20 AB (Rec: 01/05/25 16:34 AB [id number]) Physical Therapy Treatment Education Education Provided Safety M7 PT-IP Assessment and Plan Start: 01/05/25 16:23 Freq: NEEDED Status: Active Protocol: Document 01/05/25 15:20 AB (Rec: 01/05/25 16:34 AB [id number]) PT Summary Assessment and Plan Potential Rehabilitation Fair Potential Status of Condition Evolving at Evaluation Summary Impairments Pain,ROM,Strength,Balance,Coordination,Sensation,Tone, Cognition,Bed Mobility,Transfers,Gait,Activity Tolerance Assessment Summary pt is a 74 y/o F who is admitted for acute respiratory failure. pt has dx of ALS affecting current level of assistance. pt lives at [facility] and was require 2 person assist. pt is at [facility] and was able to squat pivot transfer max A x 2 and max cues. No further PT intervention indicated at this time. Frequency of Treatment Frequency Of Discharge Treatment Recommendations To Nursing Amount of Assist 2 Person Assist Needed Discharge Recommendations PT Discharge Home with 18/02 Assist Available Recommendations Other Discharge back to [facility] Recommendations Transportation Needs Wheelchair/Cabulance,Stretcher/Ambulance at Discharge - PT assist 2
--- NOTE | 2025-01-05 15:33 | CM.DANOTE ---
B DCP Assessment note pt is a 74yo F admitted with resp failure. PMH of ALS, likely progressing to impact her lungs. PMH of TBI. PCP Eduar Buenrostro at [facility] ([phone]). Payer [facility] and Medicaid per chart, pt lives at [facility]. two local support sisters have been at bedside. PUBLIC BATH ATTENDANT reviewed EMR. per chart/provider, in ICU for new BiPAP. per RN, could benefit from new BiPAP at [facility]? per OT, rec return to [facility] with increased DME. (ayala wc). dc OT order. jensen not SNF candidate due to chronic ALS progressing. was interested in DPOA paperwork. PUBLIC BATH ATTENDANT attempted to meet with ptx4, either with nursing staff, therapy staff, or using bedside commode. will work with her mroe tomorrow. PUBLIC BATH ATTENDANT spoke with nursing education specialist at [facility]. (f [phone]). reported they've struggled to get increased DME for pt due to struggles communicating with PCP? have been trying to get her more DME (ryan/emeli chair). PUBLIC BATH ATTENDANT faxed current available clinicals for review. PUBLIC BATH ATTENDANT spoke with hotel or motel receptionist at [facility] (PCP Eduar Buenrostro). hotel or motel receptionist will message PCP about new DME at [facility] PT eval pending. P: anticipate return to [facility] at pr. will continue to follow closely and coordinate with pt/SHAKIR staff. anticipate facility transport. timeline unknown. BIGG Gauthier Discharge Planning/Care Management CM Discharge Assessment Start: 01/04/25 22:32 Freq: Status: Active Protocol: Document 01/05/25 15:30 SL (Rec: 01/05/25 15:31 SL Desktop) Discharge Planning Assessment Assigned Discharge BIGG Arreola Legal Document Assistant DPOA/Assigned Mimi, sister Designee Name Contact Information [phone] Advance Directives? Yes: PER FAMILY AT [facility] Advance Directives No on File History Provided By Medical Record Prior Living Assisted Living Arrangements Household Members none Type of Relies on Others transporation used prior to admit Facility Name [facility] Admitted From: Independent with ADL No 's Is patient alert and Yes oriented? Needs Assistance Bathing,Meal Prep,Toileting,Managing Medications,Home With Chores / Shopping Discharge Plan Assisted Living Facility Transportation likely facility van Arrangement Referrals Initiated None needed Review Status In Process Please Provide Date 01/05/25 Initial DC Assessment Was Performed Next Review Type Continued Stay Review
--- NOTE | 2025-01-05 15:36 | ST.IPCSEOM ---
Visit Care Team Role Provider Type Sheyrl Harper MD Primary Care Provider Physician Specialty: Internal Medicine Address: [place], [address] Email: Benja Mcrae MD Emergency Provider Physician Referring Provider Specialty: Emergency Medicine Address: [facility] [place], [address] Fax: Email: [email or web address] Amaury Lockwood MD Admit Provider Physician Attending Provider Specialty: Internal Medicine Address: [address] [place], [address] Email: [email or web address] Diagnoses Major depressive disorder, single episode, severe without psychotic features (01/04/25) Amyotrophic lateral sclerosis (01/04/25) Acute respiratory failure with hypercapnia (01/04/25) Speech-Language Pathology Swallow Evaluation LIFESTYLE DIRECTOR Clinical Swallow Evaluation Start: 01/05/25 15:24 Freq: Status: Active Protocol: Document 01/05/25 15:24 MA (Rec: 01/05/25 15:36 MA Desktop) Clinical Swallow Evaluation Session Time Visit Start Time 11:30 Visit Stop Time 12:00 Total Visit Minutes 30 Visit Information Visit Number 1 Referral Referring Provider Amaury Angela Reason for Referral Hx swallow difficulty, ALS Setting Assessment Location Acute Care Visit Type Note Type Initial evaluation Patient Information Identification Type Name,Wristband History Per H&P: 74 y/o resident [facility] with PMH of ALS, depression, hypothyroidism, HTN, TBI, presented with severe shortness of breath, hypercapnic and started on BiPAP. Workup not suggestive of pneumonia or pulmonary edema. CXR showing atelectasis, On admission to ICU patient was sedated on a BiPAP, unable to wake up. Two of her sisters and brother in- law were present. Pt referred for ST evaluation d/t nursing report Pt stating swallowing difficulties has been ongoing. ST to determine safest and most efficient least restrictive diet. Subjective Pt sitting upright in bed upon ST entering room. Pt Observations friend present at bedside. Pt Ox3, pleasant and compliant with evaluation. Pt reports she has occasional difficulties swallowing, specifically with food feeling stuck in throat. She states she makes sure she alternated liquids/solids and swallows little bite between bites of food. Pt reports she is presented with regular solids at her [facility], however primarily consumes soft solids. She reports she supplements with fairlife drinks to ensure meeting primary nutrition and hydration needs. Reported by Patient/Caregiver Other Symptoms Difficulty swallowing solids,Food gets stuck Current Diet Regular (IDDSI 7) The IDDSI Framework Protocol: IDDSI.1 Objective Assessment Mental Status Alert,Responsive,Cooperative Oral Integrity WFL Dentition Within normal limits Respiratory Mild impairment Sufficiency Comment Oral motor exam revealed Pt with reduced lingual, labial and buccal strength and reduced breath support. O2 via nasal cannula in place. Food and Liquid Trials Position During Upright (90 degrees) Assessment Liquids Trialed Thin (IDDSI 0) Solid Trials Purred (IDDSI 4),Soft & Bite-sized (IDDSI 6) Administration Type Straw,Self-feeding Oral Impairment Mildly impaired Oral Phase Comments Pt consumed a few bites of a turkey sandwich, about 3 oz of applesauce and pudding and 4 oz of thin water via straw. Pt declined consuming hilda cracker and states she has difficulty with crumbly foods and dry meats. Pt fed self independently. For pureed solids, Pt exhibited adequate bite size, good awareness when a bite was going to be too large, good oral acceptance and containment, minimal oral stasis. For sandwich, Pt exhibited adequate bite size, prolonged mastication however adequate bolus formation and control, extended ap transport. Pt independently alternated liquids/ solids to assist with intake and clearance. For water via straw, Pt exhibited adequate suction, good oral acceptance and containment. Pharyngeal Mildly impaired Impairment Pharyngeal Phase Pt with audible swallow reflex with thin water and Comments multiple swallows to clear solids, however no overt s/s of aspiration such as coughing or choking with all trials. Fatigue/Endurance Endurance WNL The IDDSI Framework Protocol: IDDSI.1 Findings Swallowing Function Oropharyngeal phase dysphagia Severity of Swallow Mildly impaired Impairment Impact on Safety and No limitations,Risk for inadequate nutrition/hydration Functioning Comments ST recommends dietary referral Recommendations Instrumental No Assessment Swallowing Treatment No Recommended Solids Soft & Bite-sized (IDDSI 6) Recommended Liquids Thin (IDDSI 0) Other ST recommends IDDSI 6 and thin liquids with the below Recommendations safe swallowing strategies in place. ST recommended Pt communicate with nursing if change in swallow function occurs. ST communicated recommendations to nursing. ST recommends re-referral if change in swallow status. Safety Precautions/ Remain upright (90 degrees) during all oral intake, Swallowing Upright position at least 30 minutes after meals,Small Recommendations bites and sips when eating,Slow rate; swallow between bites,Alternate liquids and solids Discharge Home Recommendations Referrals Recommended Dietary Referrals Education Patient/Caregiver Described results of evaluation,Patient expressed Education understanding of evaluation,Patient expressed agreement with goals & treatment plans,Family/caregivers expressed understanding of evaluation
[2025-01-05] MEDS: MINERAL OIL 1 EACH ENEMA PR (15:45)
--- NOTE | 2025-01-05 18:38 | PM.PN.1 ---
Subjective Subjective Interval history: 74 F with unclear progressive NMD per neurology, COPD HTN, hypothyroidism who presented with shortness of breath. Admitted for hypercapnic respiratory failure. She is feeling improved today. Still feels a bit short of breath but overall improved. Exam Vital Signs (past 8 hours): - 01/05/25 11:00 01/05/25 11:01 01/05/25 11:01 Pulse Rate 83 84 Respiratory Rate 31 H 33 H Blood Pressure 130/85 Pulse Oximetry 96 95 Oxygen Delivery Method Oxygen Flow Rate Fraction of Inspired Oxygen 01/05/25 11:30 01/05/25 12:00 01/05/25 12:00 Pulse Rate 81 86 Respiratory Rate 25 H 29 H Blood Pressure 120/73 Pulse Oximetry 96 96 Oxygen Delivery Method Oxygen Flow Rate Fraction of Inspired Oxygen 01/05/25 12:30 01/05/25 12:30 01/05/25 13:00 Pulse Rate 85 92 H Respiratory Rate 39 H 47 H Blood Pressure 127/74 Pulse Oximetry 96 95 Oxygen Delivery Method Oxygen Flow Rate Fraction of Inspired Oxygen 01/05/25 13:01 01/05/25 13:01 01/05/25 13:38 Pulse Rate 90 83 Respiratory Rate 27 H 36 H Blood Pressure 126/64 Pulse Oximetry 94 93 Oxygen Delivery Method Oxygen Flow Rate Fraction of Inspired Oxygen 01/05/25 13:59 01/05/25 13:59 01/05/25 14:00 Pulse Rate 84 Respiratory Rate 42 H Blood Pressure 115/60 110/59 L Pulse Oximetry 95 Oxygen Delivery Method Oxygen Flow Rate Fraction of Inspired Oxygen 01/05/25 14:00 01/05/25 14:21 01/05/25 14:30 Pulse Rate 84 75 81 Respiratory Rate 34 H 18 36 H Blood Pressure Pulse Oximetry 97 93 91 Oxygen Delivery Method Nasal Cannula Oxygen Flow Rate 0.5 Fraction of Inspired Oxygen 22 01/05/25 14:31 01/05/25 14:31 01/05/25 15:00 Pulse Rate 83 81 Respiratory Rate 30 H 39 H Blood Pressure 117/95 H Pulse Oximetry 88 L 92 Oxygen Delivery Method Oxygen Flow Rate Fraction of Inspired Oxygen 01/05/25 15:01 01/05/25 15:01 01/05/25 16:03 Pulse Rate 80 86 Respiratory Rate 32 H Blood Pressure 148/67 H Pulse Oximetry 88 L Oxygen Delivery Method Oxygen Flow Rate Fraction of Inspired Oxygen 01/05/25 16:30 Pulse Rate 86 Respiratory Rate 32 H Blood Pressure 148/67 H Pulse Oximetry Oxygen Delivery Method Oxygen Flow Rate Fraction of Inspired Oxygen Fraction of Inspired Oxygen 22 SaO2/FiO2 Ratio 418 Oxygen Delivery Method Nasal Cannula Oxygen Flow Rate 0.5 Narrative Exam Narrative: Gen: chronically ill appearing female, thin, no acute distress, alert and oriented CV: RRR no m/r/g Pulm: diminshed breath sounds bilateral lung bases. No wheezing Abd: S NT ND Ext: no edema. Objective Labs 01/05/25 04:20 01/05/25 04:20 Labs: Laboratory Results - last 24 hr 01/04/25 01/05/25 01/05/25 18:54 00:47 00:54 WBC RBC Hgb Hct MCV MCH MCHC RDW Plt Count Neut % (Auto) Lymph % (Auto) Grayson % (Auto) Eos % (Auto) Baso % (Auto) Neut # (Auto) Lymph # (Auto) Grayson # (Auto) Eos # (Auto) Baso # (Auto) ABG Sample Site Right radial Right radial ABG pH 7.34 L 7.35 7.35 ABG pCO2 76.9 H* 67.2 H* 74.6 H* ABG pO2 67 L 53 L 52 L ABG HCO3 41 H 37 H 41 H ABG Total CO2 40 H 36 H 40 H ABG O2 Saturation 90 L 84 L* 82 L* ABG Base Excess 12.1 H 8.9 H 12.2 H Dangelo Test N/a Positive Respiration Rate O2 Delivery Device Bipap FiO2 % 21.0 % Pressure Support 14 PEEP or CPAP 6 Sodium Potassium Chloride Carbon Dioxide BUN Creatinine Estimated GFR BUN/Creatinine Ratio Glucose Calcium Nasal Screen MRSA (PCR) 01/05/25 01/05/25 01/05/25 03:41 04:20 05:26 WBC 3.4 L RBC 4.62 Hgb 13.9 Hct 42.4 MCV 91.9 MCH 30.0 MCHC 32.7 RDW 14.4 Plt Count 149 L Neut % (Auto) 88.7 H D Lymph % (Auto) 9.5 L Grayson % (Auto) 1.2 L Eos % (Auto) 0.1 L Baso % (Auto) 0.5 Neut # (Auto) 3000 Lymph # (Auto) 300 L Grayson # (Auto) 0 Eos # (Auto) 0 Baso # (Auto) 0 ABG Sample Site Left radial ABG pH 7.30 L ABG pCO2 78.7 H* ABG pO2 106 H ABG HCO3 38 H ABG Total CO2 37 H ABG O2 Saturation 97 ABG Base Excess 8.7 H Dangelo Test Positive Respiration Rate 18 O2 Delivery Device Bipap FiO2 % 30 % Pressure Support PEEP or CPAP 8 Sodium 137 Potassium 4.8 Chloride 96 L Carbon Dioxide 39 H BUN 22 H Creatinine 0.30 L Estimated GFR > 60 BUN/Creatinine Ratio 73.3 H Glucose 174 H Calcium 8.8 Nasal Screen MRSA (PCR) Not detected [facility] Social History household members: none Smoking Status: Never smoker alcohol intake: current Assessment & Plan Assessment & Plan narrative: Acute (suspect on chronic) Hypercapnic and hypoxemic Respiratory Failure, COPD with exacerbation - unclear if this is a COPD exacerbation or progression of neuromusclar disorder. - recommended for AIRWORTHINESS INSPECTOR with neurology, have ordered on admission - for now continue prednisone 40 mg daily - consider possibility of need for bipap at night, but given unclear presentation and underlying etiology will monitor for need overnight today. - goal O2 88-96% while on supplemental therapy. - continue nebulizer therapies with RT. - consider TTE but no apparent volume overload on exam. - do not suspect infectious etiology based on presentation, hold on antibiotics Neuromusclar disorder - family and patient have confirmed DNR, DNI status - her weakness is progressing, follow up with neurology as outpatient. DVT prophylaxis - Lovenox GI prophylaxis - Pepcid Code: DNR, DNI confirmed with patient today Dispo: admitted to ICU given bipap need, given unclear etiology and unclear if patient will again need bipap overnight will monitor another night in the ICU. Time-Based Coding :: [TOTAL MINUTES] spent with patient and on the chart (including review of chart, obtaining history, exam, reviewing outside data, placing orders, documenting exam and treatment plan, and counseling patient) on [DATE]. Quality VTE Deep Vein Thrombosis/Pulmonary Embolism Present on Admission: No
--- NOTE | 2025-01-05 19:07 | PC.NURSE ---
Patient was taken off BIPAP this morning by shift commander. Patient has been tolerating NC starting at 2L this morning and was titrated down 0.5 NC by RT. Patient was transferred to [facility] twice today with help of PT and OT. Patient was given suppository and then mineral enema for constipation, with resulting BM. Mancuso was discontinued intact. Patient tolerating her meals, and able to make her needs known. Call light within reach, bed alarm on for safety.
[2025-01-06] VITALS (52 sets, daily range): BP systolic 109–136; BP diastolic 55–69; PULSE 62–91; RESP 18–44; TEMP 36.7–37.2; O2SAT 90–100
[2025-01-06] MEDS: ACETAMINOPHEN 325 MG TABLET 650 MG PO (00:27)
[2025-01-06] MEDS: ALBUTEROL/IPRATROPIUM 3 ML AMPUL INH ×2 (07:14→18:25)
[2025-01-06] MEDS: predniSONE 20 MG TABLET 40 MG PO (08:44)
[2025-01-06] MEDS: ENOXAPARIN 40 MG/0.4 ML SYRINGE SUBCUT (08:44)
[2025-01-06] MEDS: FAMOTIDINE 20 MG/2 ML VIAL IV (08:44)
[2025-01-06] MEDS: LEVOTHYROXINE 50 MCG TABLET PO (11:34)
--- NOTE | 2025-01-06 11:35 | DIET.CONS ---
Dietary Consultation Note Admission Date: 01/04/2025 20:22 Assessment: 74 y F admitted for resp failure, COPD exacerbation, hx of neuromuscular disorder. Dietitian consulted for swallowing difficulty per family. SILVERWARE SUPERVISOR completed eval with diet recc below. Met with pt at bedside, reports good tolerance to food since diet adjustment. Does handheld food or food in mugs at home plus 1 fairlife protein shake per day. Is wanting to add fiber to meals received here. Ht: 152.4 cm Wt: 42.5 kg BMI: 18.3 (underweight) UBW: 42.638 kg on 09/10/24, 44.05 kg on 06/03/24 (-3.5% weight loss in >6 months, non-severe), hx of 56-60 kg in [id number] Last BM: 01/05/25 (01/05/25 18:00) MNA: 3 Lorenzo Score: 17 Diet: 01/05/25 Dinner Dysphagia Diet Diet Modifications: Food Texture: Level 6-Soft & Bite-sized Liquid Consistency: Level 0 - Thin Nutrition Percent Meal Consumed 75% 01/05/25 18:00 Percent Meal Consumed 50% 01/05/25 13:00 Percent Meal Consumed 25% 01/05/25 09:00 Labs: RBC 4.62 X10^6/uL (4.0-5.2) 01/05/25 04:20 Hgb 13.9 g/dL (12.0-16.0) 01/05/25 04:20 Hct 42.4 % (36-46) 01/05/25 04:20 Creatinine 0.30 mg/dL (0.52-1.04) L 01/05/25 04:20 NT-Pro-B Natriuret Pep 231 pg/mL (<125) H 01/04/25 14:38 Nutrition Diagnosis: Swallowing difficulty r/t motor causes aeb SILVERWARE SUPERVISOR recc level 6 diet, pt with neuromuscular disorder Interventions: -Reviewed fiber sources available to fit level 6 -Pt does best with handheld foods or foods in mug, coordination of care with unit host -Encouraged consistent meals, snacks between meals as needed EER: 1500 kcals (35 kcals/kg per BMI and increased energy needs) 55-65 g/kg (1.2-1.5 g/kg) Monitoring/Evaluations: PO intakes Electronically Signed by: Vilma Heller 01/06/25 11:35 Clinical Dietitian [address] [address]
--- NOTE | 2025-01-06 14:08 | CM.DPC ---
KARAN Cont Met with patient, her daughter, two sisters and brother in law at bedside with RT, discussed recommendation for Bipap. RT explained that without Bipap, patient would retain CO2 which would eventually cause patient's . Patient stated understanding of this. Discussed discharge options. RT had to step out. Conversation transitioned into a discussion about goals of care; patient and family tearful as patient reviews her recent functional decline and dependence on staff at [facility] for care. Patient says she does not want to live at a SNF and I don't want to linger. Family discussed their brother's transition on to hospice service at home just last week and that family all in agreement. Patient would like to return to [facility] with hospice. [facility] Plan: Discharge back to [facility] with hospice anticipated. CM team following closely for coordination. YURI
[2025-01-06] MEDS: ALPRAZolam 0.25 MG TABLET PO (15:17)
--- NOTE | 2025-01-06 17:10 | PM.PN.1 ---
Subjective Subjective Interval history: 74 F with unclear progressive NMD per neurology, COPD HTN, hypothyroidism who presented with shortness of breath. Admitted for hypercapnic respiratory failure. She is feeling improved today. Still feels a bit short of breath but overall improved. We talked about trying to set up possible BiPAP. Discussed with case management and patient actually preferrable to discharge back to [facility] with hospice rather than attempt logistics with SNF and BiPAP at night. Exam Vital Signs (past 8 hours): - 01/06/25 09:30 01/06/25 10:00 01/06/25 10:30 Temperature Pulse Rate 79 78 81 Respiratory Rate 26 H 33 H 37 H Blood Pressure Pulse Oximetry 97 93 98 Oxygen Flow Rate 01/06/25 11:00 01/06/25 11:30 01/06/25 11:58 Temperature 98.9 F Pulse Rate 80 80 Respiratory Rate 25 H 30 H Blood Pressure 136/69 Pulse Oximetry 98 95 Oxygen Flow Rate 0 01/06/25 11:58 01/06/25 12:00 Temperature Pulse Rate 78 78 Respiratory Rate 32 H 25 H Blood Pressure Pulse Oximetry 96 96 Oxygen Flow Rate Fraction of Inspired Oxygen 22 SaO2/FiO2 Ratio 431 Oxygen Delivery Method Room Air Oxygen Flow Rate 0 Narrative Exam Narrative: Gen: chronically ill appearing female, thin, no acute distress, alert and oriented CV: RRR no m/r/g Pulm: diminshed breath sounds bilateral lung bases. No wheezing Abd: S NT ND Ext: no edema. Objective Labs 01/05/25 04:20 01/05/25 04:20 [facility] Social History household members: none Smoking Status: Never smoker alcohol intake: current Assessment & Plan Assessment & Plan narrative: Acute (suspect on chronic) Hypercapnic and hypoxemic Respiratory Failure, COPD with exacerbation - unclear if this is a COPD exacerbation or progression of neuromusclar disorder but does seem improved thus far with steroids. - recommended for BUSINESS MGR with neurology, dysphagia diet ordered per BUSINESS MGR evaluation. - for now continue prednisone 40 mg daily x5 days. - considered possibility of need for bipap at night, but after additional discussions with patient today preference is to return to [facility] with hospice. - goal O2 88-96% while on supplemental therapy. - continue nebulizer therapies with RT. - given above goals will defer TTE. - do not suspect infectious etiology based on presentation, hold on antibiotics Neuromusclar disorder - family and patient have confirmed DNR, DNI status - her weakness is progressing, follow up with neurology as outpatient if desired. DVT prophylaxis - Lovenox GI prophylaxis - Pepcid Code: DNR, DNI confirmed with patient today Dispo: Floor care, plan to return to [facility] with hospice, 1-2 days depending on availability Time-Based Coding :: [TOTAL MINUTES] spent with patient and on the chart (including review of chart, obtaining history, exam, reviewing outside data, placing orders, documenting exam and treatment plan, and counseling patient) on [DATE]. Quality VTE Deep Vein Thrombosis/Pulmonary Embolism Present on Admission: No
[2025-01-06] MEDS: BISACODYL 10 MG SUPP PR (18:10)
[2025-01-07] VITALS (13 sets, daily range): BP systolic 120–139; BP diastolic 61–73; PULSE 68–85; RESP 15–25; TEMP 36.9; O2SAT 92–100
[2025-01-07 04:57] LABS: Add Manual Diff / Slide Review NO; Basophils Absolute Auto 0 /uL (0-100); Basophils Percent Auto 0.5 % (0-2); Eosinophils Absolute Auto 0 /uL (0-450); Eosinophils Percent Auto 0.6 % (2-4); Hematocrit 39.5 % (36-46); Hemoglobin 13.1 g/dL (12.0-16.0); Lymphocytes Absolute Auto 900 /uL (1100-4500); Lymphocytes Percent Auto 27.3 % (25-40); Mean Corpuscular HGB Conc 33.1 % (30-36); Mean Corpuscular Hemoglobin 30.4 PG (26-34); Mean Corpuscular Volume 91.9 fL (80-100); Monocytes Absolute Auto 300 /uL (0-900); Monocytes Percent Auto 10.1 % (3-14); Neutrophils Absolute Auto 2000 /uL (1500-7000); Neutrophils Percent Auto 61.5 % (50-75); Platelet Count 154 X10^3/uL (150-400); Red Blood Cell Count 4.29 X10^6/uL (4.0-5.2); Red Cell Distribution Width 14.5 % (11.6-14.8); White Blood Cell Count 3.3 X10^3/uL (4.5-11.0)
[2025-01-07 05:17] LABS: BUN Creatinine Ratio 51.5 (6-22); Blood Urea Nitrogen 17 mg/dL (7-17); Calcium 8.4 mg/dL (8.4-10.2); Chloride 97 mmol/L (98-107); Estimated Glomerular Filt Rate > 60 mL/min (>60); Glucose 94 mg/dL (70-99); HEMOLYSIS < 15 (0-50); Sodium 138 mmol/L (137-145)
[2025-01-07 05:24] LABS: Carbon Dioxide 38 mmol/L (22-32)
[2025-01-07] MEDS: LEVOTHYROXINE 50 MCG TABLET PO (05:59)
[2025-01-07] MEDS: CHOLECALCIFEROL (VITAMIN D3) 1,000 UNIT TABLET 2000 UNIT PO (08:14)
[2025-01-07] MEDS: ENOXAPARIN 40 MG/0.4 ML SYRINGE SUBCUT (08:14)
[2025-01-07] MEDS: predniSONE 20 MG TABLET 40 MG PO (08:14)
[2025-01-07] MEDS: ACETAMINOPHEN 325 MG TABLET 650 MG PO (10:40)
--- NOTE | 2025-01-07 10:58 | CM.DPNOTE ---
Addendum entered by BIGG Ferraro 01/07/25 11:17: ADD: [facility] can open [facility] Thursday 01/11. Yudith will call Elenita at [facility] to coordinate DME delivery and update with plan. Original Note: KARAN Castro Spoke with Yudith at [facility] this morning; she will attempt info visit with sister and patient this morning and be in touch about scheduling start of care. LM for Yudith asking for update at 1100. Placed call to Elenita at [facility] P [phone] ext [phone]. Updated that patient has elected for hospice. Elenita needs hospice to start services same day of discharge. [facility] cannot admit over the weekend. Plan: Discharge back to [facility] assisted living, likely via [facility] van. SW team following closely for coordination. Still needed: Coordinate with [facility], start of care date and DME delivery. Coordinate with [facility], admission with Hospice same day. Transport likely okay via [facility] van. JW
[2025-01-07] MEDS: ALBUTEROL/IPRATROPIUM 3 ML AMPUL INH ×2 (14:57→19:56)
--- NOTE | 2025-01-07 16:03 | P.PN_ITS ---
Subjective Subjective Interval history: 74 F with unclear progressive NMD per neurology, COPD HTN, hypothyroidism who presented with shortness of breath. Admitted for hypercapnic respiratory failure. She is feeling improved today. She is waiting to return to [facility] with hospice, now planned for Thursday 01/11 Exam Vital Signs (past 8 hours): - 01/07/25 14:00 01/07/25 14:58 Pulse Rate 80 80 Respiratory Rate 18 Blood Pressure 134/73 Pulse Oximetry 97 97 Oxygen Delivery Method Nasal Cannula Oxygen Flow Rate 0.5 0.5 Fraction of Inspired Oxygen 21 SaO2/FiO2 Ratio 438 Oxygen Delivery Method Nasal Cannula Oxygen Flow Rate 0.5 Narrative Exam Narrative: Gen: chronically ill appearing female, thin, no acute distress, alert and oriented CV: RRR no m/r/g Pulm: diminshed breath sounds bilateral lung bases. No wheezing Abd: S NT ND Ext: no edema. Objective Labs 01/07/25 04:17 01/07/25 04:17 Labs: Laboratory Results - last 24 hr 01/07/25 04:17 WBC 3.3 L RBC 4.29 Hgb 13.1 Hct 39.5 MCV 91.9 MCH 30.4 MCHC 33.1 RDW 14.5 Plt Count 154 Neut % (Auto) 61.5 D Lymph % (Auto) 27.3 [place] % (Auto) 10.1 Eos % (Auto) 0.6 L Baso % (Auto) 0.5 Neut # (Auto) 2000 Lymph # (Auto) 900 L [place] # (Auto) 300 Eos # (Auto) 0 Baso # (Auto) 0 Sodium 138 Potassium 4.0 Chloride 97 L Carbon Dioxide 38 H BUN 17 Creatinine 0.33 L Estimated GFR > 60 BUN/Creatinine Ratio 51.5 H Glucose 94 Calcium 8.4 PFSH Social History household members: none Smoking Status: Never smoker alcohol intake: current Assessment & Plan Assessment & Plan narrative: Acute (suspect on chronic) Hypercapnic and hypoxemic Respiratory Failure, COPD with exacerbation - unclear if this is a COPD exacerbation or progression of neuromusclar disorder but does seem improved thus far with steroids. - recommended for MOTOR CARRIER INSPECTOR with neurology, dysphagia diet ordered per MOTOR CARRIER INSPECTOR evaluation. - for now continue prednisone 40 mg daily x5 days, will complete course in the hospital. - considered possibility of need for bipap at night, but after additional discussions with patient preference is to return to [facility] with hospice. - goal O2 88-96% while on supplemental therapy. - continue nebulizer therapies with RT. - given above goals will defer TTE. - do not suspect infectious etiology based on presentation, hold on antibiotics Neuromusclar disorder - family and patient have confirmed DNR, DNI status - her weakness is progressing, follow up with neurology as outpatient if desired. DVT prophylaxis - Lovenox GI prophylaxis - Pepcid Code: DNR, DNI confirmed with patient Dispo: Floor care, plan to return to [facility] with hospice but cannot open until Saturday at 10-11am. Time-Based Coding :: [TOTAL MINUTES] spent with patient and on the chart (including review of chart, obtaining history, exam, reviewing outside data, placing orders, documenting exam and treatment plan, and counseling patient) on [DATE]. Quality VTE Deep Vein Thrombosis/Pulmonary Embolism Present on Admission: No
[2025-01-08] VITALS (11 sets, daily range): BP systolic 122–159; BP diastolic 64–81; PULSE 69–86; RESP 16–28; TEMP 36.5–37; O2SAT 91–100
[2025-01-08] MEDS: LEVOTHYROXINE 50 MCG TABLET PO (05:27)
[2025-01-08 05:40] LABS: Add Manual Diff / Slide Review NO; Basophils Absolute Auto 0 /uL (0-100); Basophils Percent Auto 1.1 % (0-2); Eosinophils Absolute Auto 0 /uL (0-450); Eosinophils Percent Auto 0.6 % (2-4); Hematocrit 41.9 % (36-46); Hemoglobin 13.6 g/dL (12.0-16.0); Lymphocytes Absolute Auto 1000 /uL (1100-4500); Lymphocytes Percent Auto 25.8 % (25-40); Mean Corpuscular HGB Conc 32.4 % (30-36); Mean Corpuscular Hemoglobin 30.2 PG (26-34); Mean Corpuscular Volume 93.2 fL (80-100); Monocytes Absolute Auto 300 /uL (0-900); Monocytes Percent Auto 8.4 % (3-14); Neutrophils Absolute Auto 2400 /uL (1500-7000); Neutrophils Percent Auto 64.1 % (50-75); Platelet Count 131 X10^3/uL (150-400); Red Blood Cell Count 4.49 X10^6/uL (4.0-5.2); Red Cell Distribution Width 14.6 % (11.6-14.8); White Blood Cell Count 3.8 X10^3/uL (4.5-11.0)
[2025-01-08 05:55] LABS: BUN Creatinine Ratio 65.6 (6-22); Blood Urea Nitrogen 21 mg/dL (7-17); Calcium 8.7 mg/dL (8.4-10.2); Chloride 97 mmol/L (98-107); Estimated Glomerular Filt Rate > 60 mL/min (>60); Glucose 86 mg/dL (70-99); Potassium 4.3 mmol/L (3.4-5.1); Sodium 138 mmol/L (137-145)
[2025-01-08 06:02] LABS: Carbon Dioxide 38 mmol/L (22-32); HEMOLYSIS < 15 (0-50)
--- NOTE | 2025-01-08 08:30 | P.PN_ITS ---
Subjective Subjective Date Patient Seen: 01/08/25 Interval history: Chief complaint: Severe shortness of breath hypercapnic respiratory failure with encephalopathy obtunded requiring noninvasive mechanical ventilation (BiPAP) History of present illness: 01/04: 74 y/o resident of [facility] with PMH of ALS, depression, hypothyroidism, HTN, TBI, presented with severe shortness of breath, hypercapnic and started on BiPAP. Workup not suggestive of pneumonia or pulmonary edema. CXR showing atelectasis, On admission to ICU patient was sedated on a BiPAP, unable to wake up. Two of her sisters and brother in-law were present. Hospital course: 01/05: She is feeling improved today. Still feels a bit short of breath but overall improved. 01/06: She is feeling improved today. Still feels a bit short of breath but overall improved. We talked about trying to set up possible BiPAP. Discussed with case management and patient actually preferrable to discharge back to [facility] with hospice rather than attempt logistics with SNF and BiPAP at night. 01/07: 74 F with unclear progressive NMD per neurology, COPD HTN, hypothyroidism who presented with shortness of breath. Admitted for hypercapnic respiratory failure. She is feeling improved today. She is waiting to return to [facility] with hospice, now planned for 01/11: Comfortable but sometimes anxious asking for her Xanax which we escalated to every 6 hours Review of systems: Physical exam: Assessment and plan: Acute (suspect on chronic) Hypercapnic and hypoxemic Respiratory Failure, COPD with exacerbation * Plan for discharge back to [facility] with hospice without a nocturnal BiPAP * - unclear if this is a COPD exacerbation or progression of neuromusclar disorder but does seem improved thus far with steroids. * - recommended for NUTRITION AND DIETETICS INSTRUCTOR with neurology, dysphagia diet ordered per NUTRITION AND DIETETICS INSTRUCTOR evaluation. * - for now continue prednisone 40 mg daily x5 days. * - considered possibility of need for bipap at night, but after additional discussions with patient today preference is to return to [facility] with hospice. * - goal O2 88-96% while on supplemental therapy. * - continue nebulizer therapies with RT. * - given above goals will defer TTE. * - do not suspect infectious etiology based on presentation, hold on antibiotics Neuromusclar disorder * - family and patient have confirmed DNR, DNI status * - her weakness is progressing, follow up with neurology as outpatient if desired. DVT prophylaxis - Lovenox GI prophylaxis - Pepcid Code: DNR, DNI confirmed with patient today Dispo: Floor care, plan to return to [facility] with hospice, 1-2 days depending on availability Time-Based Coding :: 36 minutes spent with patient and on the chart (including review of chart, obtaining history, exam, reviewing outside data, placing orders, documenting exam and treatment plan, and counseling patient Exam Vital Signs (past 8 hours): - 01/08/25 04:00 Temperature 98.6 F Pulse Rate 82 Respiratory Rate 16 Blood Pressure 152/73 H Pulse Oximetry 100 Fraction of Inspired Oxygen 21 SaO2/FiO2 Ratio 438 Oxygen Delivery Method Nasal Cannula Oxygen Flow Rate 0.5 Objective Labs 01/08/25 04:38 01/08/25 04:38 Labs: Laboratory Results - last 24 hr 01/08/25 04:38 WBC 3.8 L RBC 4.49 Hgb 13.6 Hct 41.9 MCV 93.2 MCH 30.2 MCHC 32.4 RDW 14.6 Plt Count 131 L Neut % (Auto) 64.1 Lymph % (Auto) 25.8 [place] % (Auto) 8.4 Eos % (Auto) 0.6 L Baso % (Auto) 1.1 Neut # (Auto) 2400 Lymph # (Auto) 1000 L [place] # (Auto) 300 Eos # (Auto) 0 Baso # (Auto) 0 Sodium 138 Potassium 4.3 Chloride 97 L Carbon Dioxide 38 H BUN 21 H Creatinine 0.32 L Estimated GFR > 60 BUN/Creatinine Ratio 65.6 H Glucose 86 Calcium 8.7 PFSH Social History household members: none Smoking Status: Never smoker alcohol intake: current Assessment & Plan Time-Based Coding :: [TOTAL MINUTES] spent with patient and on the chart (including review of chart, obtaining history, exam, reviewing outside data, placing orders, documenting exam and treatment plan, and counseling patient) on [DATE]. Quality VTE Deep Vein Thrombosis/Pulmonary Embolism Present on Admission: No
[2025-01-08] MEDS: ALBUTEROL/IPRATROPIUM 3 ML AMPUL INH ×2 (08:44→18:12)
[2025-01-08] MEDS: predniSONE 20 MG TABLET 40 MG PO (09:30)
[2025-01-08] MEDS: ALPRAZolam 0.25 MG TABLET PO ×2 (09:30→18:50)
[2025-01-08] MEDS: ACETAMINOPHEN 325 MG TABLET 650 MG PO ×2 (09:31→23:25)
[2025-01-08] MEDS: BISACODYL 10 MG SUPP PR (09:31)
[2025-01-08] MEDS: CHOLECALCIFEROL (VITAMIN D3) 1,000 UNIT TABLET 2000 UNIT PO (09:31)
[2025-01-08] MEDS: ENOXAPARIN 40 MG/0.4 ML SYRINGE SUBCUT (09:32)
[2025-01-08] MEDS: carvediloL 3.125 MG TABLET PO ×2 (13:41→21:01)
[2025-01-09] MEDS: LEVOTHYROXINE 50 MCG TABLET PO (05:48)
[2025-01-09 07:50] VITALS: PULSE 74; RESP 18; O2SAT 100
[2025-01-09] MEDS: ALBUTEROL/IPRATROPIUM 3 ML AMPUL INH (07:50)
[2025-01-09 08:00] VITALS: BP 134/71; PULSE 75; RESP 27; TEMP 36.7; O2SAT 99
[2025-01-09 09:07] LABS: Add Manual Diff / Slide Review NO; Basophils Absolute Auto 0 /uL (0-100); Basophils Percent Auto 0.5 % (0-2); Eosinophils Absolute Auto 0 /uL (0-450); Eosinophils Percent Auto 1.3 % (2-4); Hematocrit 42.9 % (36-46); Hemoglobin 13.9 g/dL (12.0-16.0); Lymphocytes Absolute Auto 800 /uL (1100-4500); Lymphocytes Percent Auto 25.6 % (25-40); Mean Corpuscular HGB Conc 32.4 % (30-36); Mean Corpuscular Hemoglobin 30.1 PG (26-34); Mean Corpuscular Volume 92.9 fL (80-100); Monocytes Absolute Auto 200 /uL (0-900); Monocytes Percent Auto 6.7 % (3-14); Neutrophils Absolute Auto 2200 /uL (1500-7000); Neutrophils Percent Auto 65.9 % (50-75); Platelet Count 144 X10^3/uL (150-400); Red Blood Cell Count 4.62 X10^6/uL (4.0-5.2); Red Cell Distribution Width 14.7 % (11.6-14.8); White Blood Cell Count 3.3 X10^3/uL (4.5-11.0)
[2025-01-09 09:29] LABS: BUN Creatinine Ratio 56.3 (6-22); Blood Urea Nitrogen 18 mg/dL (7-17); Calcium 8.7 mg/dL (8.4-10.2); Chloride 95 mmol/L (98-107); Estimated Glomerular Filt Rate > 60 mL/min (>60); Glucose 80 mg/dL (70-99); HEMOLYSIS < 15 (0-50); Potassium 3.9 mmol/L (3.4-5.1); Sodium 139 mmol/L (137-145)
[2025-01-09 09:49] LABS: Carbon Dioxide 38 mmol/L (22-32)
[2025-01-09] MEDS: carvediloL 3.125 MG TABLET PO ×2 (09:51→20:33)
[2025-01-09] MEDS: CHOLECALCIFEROL (VITAMIN D3) 1,000 UNIT TABLET 2000 UNIT PO (09:51)
[2025-01-09] MEDS: guaiFENesin ER 600 MG TAB PO (09:51)
--- NOTE | 2025-01-09 10:32 | CM.DPC ---
DCP Cont. Reviewed EMR and team rounds for pt's medical status updates. Met with pt to discuss d/c plan on Saturday for return to [facility] w/hospice. She initially had stated that she did not want to return to [facility], but upon further discussion, she shared that she wants to stay in the hospital and here. SUGAR CONTROLLER explained that we are not able to do this, as she is not imminently at the end of life, and that we do have a good d/c plan in place for her with [facility]. She expressed wanted her POLST done to reflect DNR status. Completed POLST. Copy to medical records and copy in red folder, pt has original.
[2025-01-09] MEDS: ACETAMINOPHEN 325 MG TABLET 650 MG PO ×2 (10:45→20:34)
[2025-01-09] MEDS: DOCUSATE 100 MG CAPSULE PO (16:15)
[2025-01-09] MEDS: polyethylene glycoL 3350 17 GM POWD.PACK PO (16:15)
--- NOTE | 2025-01-09 16:25 | PM.PN.1 ---
Subjective Subjective Date Patient Seen: 01/09/25 Interval history: Chief complaint: Severe shortness of breath hypercapnic respiratory failure with encephalopathy obtunded requiring noninvasive mechanical ventilation (BiPAP) History of present illness: 01/04:74 y/o resident of [facility] with PMH of ALS, depression, hypothyroidism, HTN, TBI, presented with severe shortness of breath, hypercapnic and started on BiPAP. Workup not suggestive of pneumonia or pulmonary edema. CXR showing atelectasis, On admission to ICU patient was sedated on a BiPAP, unable to wake up. Two of her sisters and brother in-law were present. Hospital course: 01/05:She is feeling improved today. Still feels a bit short of breath but overall improved. 01/06:She is feeling improved today. Still feels a bit short of breath but overall improved. We talked about trying to set up possible BiPAP. Discussed with case management and patient actually preferrable to discharge back to [facility] with hospice rather than attempt logistics with SNF and BiPAP at night. 01/07:74 F with unclear progressive NMD per neurology, COPD HTN, hypothyroidism who presented with shortness of breath. Admitted for hypercapnic respiratory failure. She is feeling improved today. She is waiting to return to [facility] with hospice, now planned for 01/11: Comfortable but sometimes anxious asking for her Xanax which we escalated to every 6 hours Review of systems: No fever or chills No difficulty swallowing No shortness a breath at rest No nausea vomiting diarrhea Physical exam: Alert and oriented cogent New labored respirations Extremities no edema Assessment and plan: Acute (suspect on chronic) Hypercapnic and hypoxemic Respiratory Failure, COPD with exacerbation Plan for discharge back to [facility] with hospice without a nocturnal BiPAP - unclear if this is a COPD exacerbation or progression of neuromusclar disorder but does seem improved thus far with steroids. - recommended for SCHOOL BASED THERAPIST with neurology, dysphagia diet ordered per SCHOOL BASED THERAPIST evaluation. - for now continue prednisone 40 mg daily x5 days. - considered possibility of need for bipap at night, but after additional discussions with patient today preference is to return to [facility] with hospice. - goal O2 88-96% while on supplemental therapy. - continue nebulizer therapies with RT. - given above goals will defer TTE. - do not suspect infectious etiology based on presentation, hold on antibiotics Neuromusclar disorder - family and patient have confirmed DNR, DNI status - her weakness is progressing, follow up with neurology as outpatient if desired. DVT prophylaxis - Lovenox GI prophylaxis - Pepcid Code: DNR, DNI confirmed with patient today Dispo: Floor care, plan to return to [facility] with hospice, Saturday Time-Based Coding :: 35 minutes spent with patient and on the chart (including review of chart, obtaining history, exam, reviewing outside data, placing orders, documenting exam and treatment plan, and counseling patient Exam Vital Signs (past 8 hours): Fraction of Inspired Oxygen 24 SaO2/FiO2 Ratio 416 Oxygen Delivery Method Nasal Cannula Oxygen Flow Rate 1 Objective Labs 01/09/25 08:18 01/09/25 08:18 Labs: Laboratory Results - last 24 hr 01/09/25 08:18 WBC 3.3 L RBC 4.62 Hgb 13.9 Hct 42.9 MCV 92.9 MCH 30.1 MCHC 32.4 RDW 14.7 Plt Count 144 L Neut % (Auto) 65.9 Lymph % (Auto) 25.6 [place] % (Auto) 6.7 Eos % (Auto) 1.3 L Baso % (Auto) 0.5 Neut # (Auto) 2200 Lymph # (Auto) 800 L [place] # (Auto) 200 Eos # (Auto) 0 Baso # (Auto) 0 Sodium 139 Potassium 3.9 Chloride 95 L Carbon Dioxide 38 H BUN 18 H Creatinine 0.32 L Estimated GFR > 60 BUN/Creatinine Ratio 56.3 H Glucose 80 Calcium 8.7 PFSH Social History household members: none Smoking Status: Never smoker alcohol intake: current Assessment & Plan Time-Based Coding :: [TOTAL MINUTES] spent with patient and on the chart (including review of chart, obtaining history, exam, reviewing outside data, placing orders, documenting exam and treatment plan, and counseling patient) on [DATE]. Quality VTE Deep Vein Thrombosis/Pulmonary Embolism Present on Admission: No
[2025-01-09 19:00] VITALS: BP 134/67; PULSE 68; RESP 18; TEMP 36.8; O2SAT 100
[2025-01-09 20:33] VITALS: BP 134/67; PULSE 74
[2025-01-09] MEDS: ALPRAZolam 0.25 MG TABLET PO (20:34)
[2025-01-10] MEDS: LEVOTHYROXINE 50 MCG TABLET PO (06:46)
[2025-01-10] MEDS: ACETAMINOPHEN 325 MG TABLET 650 MG PO ×2 (06:46→20:16)
[2025-01-10 07:00] VITALS: BP 112/64; PULSE 68; RESP 25; O2SAT 94
[2025-01-10 08:31] VITALS: PULSE 76; RESP 20; O2SAT 95
[2025-01-10] MEDS: ALBUTEROL/IPRATROPIUM 3 ML AMPUL INH ×2 (08:31→19:12)
[2025-01-10] MEDS: carvediloL 3.125 MG TABLET PO ×2 (09:05→20:16)
[2025-01-10] MEDS: ENOXAPARIN 40 MG/0.4 ML SYRINGE SUBCUT (09:05)
[2025-01-10] MEDS: CHOLECALCIFEROL (VITAMIN D3) 1,000 UNIT TABLET 2000 UNIT PO (09:05)
[2025-01-10] MEDS: polyethylene glycoL 3350 17 GM POWD.PACK PO (09:05)
[2025-01-10] MEDS: ALPRAZolam 0.25 MG TABLET PO ×2 (09:34→14:46)
--- NOTE | 2025-01-10 10:56 | PM.PN.1 ---
Subjective Subjective Date Patient Seen: 01/10/25 Interval history: Chief complaint: Severe shortness of breath hypercapnic respiratory failure with encephalopathy obtunded requiring noninvasive mechanical ventilation (BiPAP) History of present illness: 01/04:74 y/o resident of [facility] with PMH of ALS, depression, hypothyroidism, HTN, TBI, presented with severe shortness of breath, hypercapnic and started on BiPAP. Workup not suggestive of pneumonia or pulmonary edema. CXR showing atelectasis, On admission to ICU patient was sedated on a BiPAP, unable to wake up. Two of her sisters and brother in-law were present. Hospital course: 01/05:She is feeling improved today. Still feels a bit short of breath but overall improved. 01/06:She is feeling improved today. Still feels a bit short of breath but overall improved. We talked about trying to set up possible BiPAP. Discussed with case management and patient actually preferrable to discharge back to [facility] with hospice rather than attempt logistics with SNF and BiPAP at night. 01/07: She is feeling improved today. She is waiting to return to [facility] with hospice, now planned for 01/11: Comfortable but sometimes anxious asking for her Xanax which we escalated to every 6 hours 01/09: No significant change in symptoms today appetite is good case management discussed for plans for patient to be discharged to [facility] on Saturday with hospice 01/10: Feeling anxious this morning resting after taking alprazolam 0.25 mg no change in exam Review of systems: No fever or chills No difficulty swallowing No shortness a breath at rest No nausea vomiting diarrhea Physical exam: Alert and oriented cogent Unlabored respirations Extremities no edema Assessment and plan: Acute (suspect on chronic) Hypercapnic and hypoxemic Respiratory Failure, COPD with exacerbation Plan for discharge back to [facility] with hospice without a nocturnal BiPAP - unclear if this is a COPD exacerbation or progression of neuromusclar disorder but does seem improved thus far with steroids. - recommended for FLASK CLEANER with neurology, dysphagia diet ordered per FLASK CLEANER evaluation. - for now continue prednisone 40 mg daily x5 days. - considered possibility of need for bipap at night, but after additional discussions with patient today preference is to return to [facility] with hospice. - goal O2 88-96% while on supplemental therapy. - continue nebulizer therapies with RT. - given above goals will defer TTE. - do not suspect infectious etiology based on presentation, hold on antibiotics Neuromusclar disorder - family and patient have confirmed DNR, DNI status - her weakness is progressing, follow up with neurology as outpatient if desired. DVT prophylaxis - Lovenox GI prophylaxis - Pepcid Code: DNR, DNI confirmed with patient today Dispo: Floor care, plan to return to [facility] with hospice, Saturday Time-Based Coding :: 35 minutes spent with patient and on the chart (including review of chart, obtaining history, exam, reviewing outside data, placing orders, documenting exam and treatment plan, and counseling patient Exam Vital Signs (past 8 hours): - 01/10/25 07:00 01/10/25 08:31 Pulse Rate 68 76 Respiratory Rate 25 H 20 Blood Pressure 112/64 Pulse Oximetry 94 95 Oxygen Delivery Method Room Air Oxygen Flow Rate 0 Fraction of Inspired Oxygen 21 Fraction of Inspired Oxygen 21 SaO2/FiO2 Ratio 452 Oxygen Delivery Method Room Air Oxygen Flow Rate 0 Objective Labs 01/09/25 08:18 01/09/25 08:18 PFSH Social History household members: none Smoking Status: Never smoker alcohol intake: current Assessment & Plan Time-Based Coding :: [TOTAL MINUTES] spent with patient and on the chart (including review of chart, obtaining history, exam, reviewing outside data, placing orders, documenting exam and treatment plan, and counseling patient) on [DATE]. Quality VTE Deep Vein Thrombosis/Pulmonary Embolism Present on Admission: No
--- NOTE | 2025-01-10 12:20 | PC.NURSE ---
Addendum entered by Shara Santoyo R.N. 01/10/25 16:19: Pt was given another 0.25mf of xanax for anxiety, she has been resting comfortably and sleeping. Orders are now for xanax 0.5mg every 6 hours prn. Original Note: Patient is anxious this morning, given 0.25mg of xanax and patient is able to rest and is easily arousable. She is alert and oriented x4. Patient only has use of her r.arm, and is unable to ambulate. Patient has ALS and states that she was dx a year ago. She has a mepelex dressing to her sacrum area and dressing is cdi. Patient visiting with family now.
--- NOTE | 2025-01-10 13:56 | CM.DPC ---
Addendum entered by BIGG Shannon 01/10/25 15:07: ADD: Return call from Margarita at [facility] and she confirms she completed Hospice Info visit with pt and friend and requesting scripts be sent to [facility] first thing in AM as they have been slow with getting meds filled and their RN can do SOC [id number] Mon 01/11 tomorrow and request pt d/c around 1330 right before Hospice SOC. BF Original Note: DCP Hospice Cont: Per MD, pt remains stable and weaning from oxygen to room air if tolerated and comfort measures. Per Margarita at [facility], unable to get ahold of staff at [facility] to determine DME needs for ordering for delivery and also attempted to call pt's sister who is her POA and no answer and vm box full. SW met bedside with pt and family friends and explained role and pt more alert and oriented today and able to participate in discharge planning discussion and answers questions appropriately but fatigued. Pt and best friend Milagros confirm that she remains agreeable to d/c tomorrow back to [facility] with [facility] although her preference continues to be to remain in the hospital until she expires but understands this is not an option at this time as she is not imminent. Pt requesting Hospice Margarita call pt herself on her cell phone while friend Milagros is in the room as well for Info Visit and to determine if pt should keep her own electric bed at [facility] or use Hospital Bed delivered by Hospice at d/ and to discuss other questions. FARZANA called [facility] and spoke to w/e staff Yandel and he contacted [employer] [facility] and request for DME is hospital bed, bedside table, ryan lift, and oxygen. FARZANA alerted Margarita at [facility] to call pt's cell phone for Info Visit and also DME for [facility] and Margarita will order DME for delivery in the morning but likely will have to postpone RN SOC time from 1000 to the afternoon so DME can be delivered first. special education assistant has to assess pt first before ryan lift can be ordered for delivery. FARZANA discussed with pt and best friend Pat options for transport at d/c including w/c vs stretcher transport and that stretcher not guaranteed to be covered by insurance and could have out of pocket expense. Pt currently feels she could be hoyered into her own w/c for transport but might feel more fatigued or obtunded in the morning and might need stretcher pending her progress tonight. Plan: SW to follow for plan of discharge back to [facility] tomorrow Sat after [facility] DME delivered to [facility] in the morning. SW to follow closely for confirming w/c vs stretcher transport at d/c pending pt's alertness at d/c. Fax d/c summary, med list, and the copy of updated POLST form to [facility] at discharge. Teresa Chavez MSW
[2025-01-10 19:00] VITALS: BP 125/65; PULSE 82; RESP 20; TEMP 37.2; O2SAT 91
[2025-01-10 20:16] VITALS: BP 125/65; PULSE 83
[2025-01-10] MEDS: ALPRAZolam 0.25 MG TABLET 0.5 MG PO (20:16)
[2025-01-10] MEDS: DOCUSATE 100 MG CAPSULE PO (20:16)
[2025-01-11] MEDS: ALPRAZolam 0.25 MG TABLET 0.5 MG PO ×2 (05:37→11:27)
[2025-01-11] MEDS: ACETAMINOPHEN 325 MG TABLET 650 MG PO (05:37)
--- NOTE | 2025-01-11 07:33 | P.DS_ITS ---
History of Present Illness History of Present Illness Date Patient Seen: 01/11/25 Chief complaint: shortness of breath Narrative: Chief complaint: Severe shortness of breath hypercapnic respiratory failure with encephalopathy obtunded requiring noninvasive mechanical ventilation (BiPAP) History of present illness: 01/04:74 y/o resident of [facility] with PMH of ALS, depression, hypothyroidism, HTN, TBI, presented with severe shortness of breath, hypercapnic and started on BiPAP. Workup not suggestive of pneumonia or pulmonary edema. CXR showing atelectasis, On admission to ICU patient was sedated on a BiPAP, unable to wake up. Two of her sisters and brother in-law were present. Hospital course: 01/05:She is feeling improved today. Still feels a bit short of breath but overall improved. 01/06:She is feeling improved today. Still feels a bit short of breath but overall improved. We talked about trying to set up possible BiPAP. Discussed with case management and patient actually preferrable to discharge back to [facility] with hospice rather than attempt logistics with SNF and BiPAP at night. 01/07: She is feeling improved today. She is waiting to return to [facility] with hospice, now planned for 01/11: Comfortable but sometimes anxious asking for her Xanax which we escalated to every 6 hours 01/09: No significant change in symptoms today appetite is good case management discussed for plans for patient to be discharged to [facility] on Saturday with hospice 01/10: Feeling anxious this morning resting after taking alprazolam 0.25 mg no change in exam 01/11: Patient discharged to [facility] with hospice services Review of systems: No fever or chills No difficulty swallowing No shortness a breath at rest No nausea vomiting diarrhea Physical exam: Alert and oriented cogent Unlabored respirations Extremities no edema Assessment and plan: Acute (suspect on chronic) Hypercapnic and hypoxemic Respiratory Failure, COPD with exacerbation * Plan for discharge back to [facility] with hospice without a nocturnal BiPAP Neuromusclar disorder * - family and patient have confirmed DNR, DNI status * - her weakness is progressing, follow up with neurology as outpatient if desired. Dispo: Floor care, plan to return to [facility] with hospice, Saturday Time-Based Coding :: 35 minutes spent with patient and on the chart (including review of chart, obtaining history, exam, reviewing outside data, placing orders, documenting exam and treatment plan, and counseling patient Discharge Providers Provider Date of admission: 01/04/25 20:22 Discharge Date: 01/11/25 Primary care physician: Sheryl Harper MD Consults: 01/05/25 00:51 Consult to Speech Therapy Evaluate & Treat Comment: Discontinue Physician Instructions: Evaluate and treat 01/05/25 10:45 Consult to Occupational Therapy Evaluate & Treat Comment: Physician Instructions: Evaluate and treat Consult to Physical Therapy Evaluate & Treat Comment: PT eval completed. Physician Instructions: Evaluate and Treat Discharge provider: Rolando Harrington MD Exam Vital Signs (past 8 hours): Fraction of Inspired Oxygen 21 SaO2/FiO2 Ratio 452 Oxygen Delivery Method Nasal Cannula Oxygen Flow Rate 1 Objective Labs 01/09/25 08:18 01/09/25 08:18 Labs: Laboratory Results - last 24 hr 01/04/25 01/05/25 17:12 00:54 ABG Sample Site Not Reportable Dangelo Test Not Reportable VBG pCO2 Not Reportable [facility] Social History household members: none Smoking Status: Never smoker alcohol intake: current Discharge Plan Discharge Plan Patient Disposition: Assisted Living Transfer to: [facility] Discharge orders & Medications Discharge Orders: Discharge (Order); Ordered 01/11/25 Ordered By: Rolando Harrington Prescriptions: New alprazolam 0.25 mg Tablet 0.5 mg PO Q6H PRN (Reason: Anxiety) Qty: 20 0RF bisacodyl 10 mg Suppository 10 mg MN BID Qty: 60 0RF carvedilol 3.125 mg Tablet 3.125 mg PO BID Qty: 60 0RF Continued Combivent Respimat 20-100 mcg/actuation mist inhalation lisinopril 5 mg tablet 5 mg PO DAILY naltrexone 50 mg tablet 50 mg PO DAILY ondansetron 4 mg tablet,disintegrating 4 mg PO DAILY PRN (Reason: nausea and vomiting) Combivent Respimat 20-100 mcg/actuation mist 1 puff inhalation 4XD cholecalciferol (vitamin D3) 50 mcg (2,000 unit) capsule 50 mcg PO DAILY Zyrtec 10 mg capsule 10 mg PO DAILY PRN (Reason: allergy symptoms) Qty: 30 0RF levothyroxine 50 mcg tablet 50 mcg PO DAILY Stiolto Respimat 2.5-2.5 mcg/actuation mist 2 puff INHALATION DAILY alprazolam 0.25 mg tablet 0.25 mg PO DAILY Follow up/Referrals: Sheryl Harper MD [Primary Care Provider, Internal Medicine] Visit Report/Discharge Packet Stand Alone Forms: Patient Portal/API, Stroke Signs & Symptoms Discharge Data Primary Care Provider: Sheryl Harper Quality VTE Deep Vein Thrombosis/Pulmonary Embolism Present on Admission: No
[2025-01-11 08:41] VITALS: BP 93/60; PULSE 83
[2025-01-11] MEDS: polyethylene glycoL 3350 17 GM POWD.PACK PO (08:41)
[2025-01-11] MEDS: ENOXAPARIN 40 MG/0.4 ML SYRINGE SUBCUT (08:41)
[2025-01-11] MEDS: carvediloL 3.125 MG TABLET PO (08:41)
[2025-01-11] MEDS: CHOLECALCIFEROL (VITAMIN D3) 1,000 UNIT TABLET 2000 UNIT PO (08:45)
[2025-01-11 08:50] VITALS: BP 93/60; PULSE 80; RESP 30; TEMP 36.7; O2SAT 95
--- NOTE | 2025-01-11 11:14 | CM.DPNOTE ---
DCP note MERCHANDISE MANAGER reviewed EMR coordinated with mult parties throughout morning. per pt in room with friend Saadia, in agreement with DCP. preference BLS transport, does not think can sit up in wc. verbal understanding there may be a bill associated with BLS. concerns about Hospice at [facility], MERCHANDISE MANAGER provider PP CG information if interested in additional care to supplement [facility]/friend/family support. pt appreciative. asked this MERCHANDISE MANAGER update sister on plan. denies other questions or needs at this time. [facility]- Elenita Leung/[facility], confirmed DCP. MERCHANDISE MANAGER faxed clinicals/meds/dc sum. concerns about DME. gave [facility] number to coordinate DME. [facility]-confirmed with Farzana GROSS today 1400. DME being delivered this AM. MERCHANDISE MANAGER faxed dc summary. LVM with sister Mimi to update on DCP. [facility]- spoke with Cici. arranged transport for 1315. MERCHANDISE MANAGER completed BLS form. placed in chart with AIMEE/AMAYA. updated RN/TIMBER REPAIRER. P: dc today to [facility] via BLS at 1315. [facility] to open at 1400. CM team will continue to follow as needed for DCP coordination Elba Love, MERCHANDISE MANAGER
[2025-01-11] MEDS: ONDANSETRON 4 MG ODT SL (11:31)
--- NOTE | 2025-01-11 12:36 | PC.NURSE ---
Addendum entered by Lala Hoffmann R.N. 01/11/25 13:43: All belongings sent with pt and medical transport. Report given to medical transport team. Original Note: Called [facility] to attempt to give report before patient leaves but was told that I just need to send discharge paperwork with patient. Skin note: pt does have area of blanchable erythema on coccyx and buttocks, new mepilex dressing applied and pt turned q1-2 hours during shift.
== END 2025-01-11 13:45 | DRG 189 ==
LOC: ED 20:18 → AC 20:25 → ICU 22:18
PROVIDERS: Emergency Medicine; Internal Medicine; Admitting Provider Internal Medicine; Emergency Provider Emergency Medicine; PCP Internal Medicine; Referring Provider Emergency Medicine; Visit Provider Internal Medicine
DX: J96.22 Acute and chronic respiratory failure with hypercapnia (principal); G12.21 Amyotrophic lateral sclerosis; F32.2 Major depressive disorder, single episode, severe without psychotic features; J44.1 Chronic obstructive pulmonary disease with (acute) exacerbation; G93.40 Encephalopathy, unspecified; J96.21 Acute and chronic respiratory failure with hypoxia; F41.9 Anxiety disorder, unspecified; I10 Essential (primary) hypertension; E03.9 Hypothyroidism, unspecified; Z79.890 Hormone replacement therapy; Z66 Do not resuscitate; Z87.820 Personal history of traumatic brain injury
CPT/HCPCS: 36415; 36600; 71045; 71250; 71275; 74176; 80048; 80053; 82550; 82805; 83880; 84484; 85025; 85610; 85730; 87797; 92610; 93005; 93970; 94640; 94760; 94762; 96374; 97162; 97167; 99284; 99285; J1650; J2919; J7613